=== PATIENT | female | born 1990 | race Caucasian/White ===

== ENCOUNTER 2016-07-16 22:33 | Emergency (ER) | payer OTHER ==
[2016-07-16 22:46] VITALS: BP 139/76
[2016-07-16 22:58] LABS: Urine Bilirubin Negative (NEGATIVE); Urine Blood Negative /ul (NEGATIVE); Urine Ketone Negative (NEGATIVE); Urine Nitrite Negative (NEGATIVE); Urine Protein Negative (NEGATIVE); Urine Specific Gravity 1.025 SP.GR. (1.005-1.010); Urine Urobilinogen Normal (NORMAL); Urine pH 6.5 pH (5.0-7.0)
[2016-07-17 00:11] LABS: Urine Appearance Clear; Urine Bacteria 1+; Urine Color Yellow; Urine RBC None Seen /hpf (0-5); Urine WBC None Seen /hpf (0-5)
[2016-07-17] MEDS ORDERED: HYDROcodone/ACETAMINOPHEN 1 EACH TABLET PO ONE (00:38)
[2016-07-17] MEDS ORDERED: SULFAMETHOXAZOLE/TRIMETHOPRIM 1 TAB TABLET PO ONE (00:38)
--- NOTE | 2016-07-17 00:44 | ERNOTE ---
Back Pain ER HPI Date of Service: 07/16/16 Presenting Symptoms: other Time Seen by Provider: 07/16/16 23:55 Source: patient Exam Limitations: no limitations Immunizations: IMMUNIZATION HX Immunizations Up to Date Yes History of Influenza Vaccine No Hx Pneumococcal Vaccination No Allergies/Adverse Reactions: Allergies adhesive Allergy (Severe, Verified 07/16/16 22:46) ketorolac tromethamine [From Toradol] Allergy (Severe, Verified 07/16/16 22:46) latex Allergy (Severe, Verified 07/16/16 22:46) promethazine HCl [From Phenergan] Allergy (Severe, Verified 07/16/16 22:46) Home Medications: HOME MEDICATIONS Hydrocodone/Acetaminophen [Lortab 5-325 mg Tablet] 1 - 2 each PO QID PRN #16 tablet 07/17/16 [Last Taken Unknown] Sulfamethoxazole/Trimethoprim [Bactrim Ds] 1 tab PO BID #14 tab 07/17/16 [Last Taken Unknown] Narrative: 3 days of right low back pain, flank pain. Hx of kidney stone and is concerned she might have another. No fall or injury. No fever. No distinct dysuria. Has Implanon and periods are irregular. Date (Duration): 07/13/16 Timing: Reports: getting worse Quality/Severity: Reports: moderate Location of pain: Reports: lower back Activities at Onset: Reports: none Recent Injury?: Reports: no Possible Precipitating Factor: Reports: none Modifying Factors - (Worsens): Reports: movement flexion Associated Symptoms: Denies: fever/chills Prior Treament: Denies: recently seen Review of Systems - Review of Systems Constitutional: Present: no symptoms reported ENT: Present: no symptoms reported Respiratory: Present: no symptoms reported Cardiology: Present: no symptoms reported Gastrointestinal/Abdominal: Present: no symptoms reported. Absent: nausea, vomiting Genitourinary: Present: frequency. Absent: decreased urinary output Musculoskeletal: Present: back pain - Patient's Past Medical History Patient History - Medical: Fibromyalgia, GERD, Headache, Kidney stone, Migraines , Obesity, UTI'S Patient History - Cardiac/Respiratory: No pertinent hx Patient History - Cancer: No Hx of Cancer Patient History - Surgical Procedures: Other - Family History Mother Family History - Medical: Diabetes Type 2 Family History - Cardiac/Respiratory: Coronary Heart Disease, Myocardial Infarction Father Family History - Medical: Diabetes Type 2 Family History - Cardiac/Respiratory: Coronary Heart Disease - Social History Living Situations: home Smoking Status: Current every day smoker Have you smoked in the past 12 months: Yes Do you dip or chew tobacco: No Alcohol Use: none Drug Use: none Physical Exam - Physical Exam General Appearance: Present: wd/wn, alert, no apparent distress Neck: Present: normal inspection, nontender Respiratory: Present: no respiratory distress, normal breath sounds, no accessory muscle use, lungs clear Cardiovascular/Chest: Present: regular rate, rhythm Gastrointestinal/Abdominal: Present: normal bowel sounds, nontender, other - obese ++, pannus Back Exam: Present: CVA tenderness (R), decreased range of motion. Absent: CVA tenderness (L) Extremity Exam: Present: normal inspection, no edema Neurological Exam: Present: alert, oriented Skin Exam: Present: warm/dry ED Progress - Results and Orders Patient's Lab Results:: I have reviewed the patient's lab results. - Vital Signs Patient's Vital Signs:: I have reviewed the patient's vital signs. Vital Signs: Vital Signs 07/16/16 22:44 Temperature 35.3 C L Pulse Rate 85 Respiratory 14 Rate Blood Pressure 139/76 O2 Sat by Pulse 97 Oximetry - Progress/Reassessment Chief Complaint: Back Pain Plan - Plan Plan: Minimal evidence for UTI, only bacteruria. Treat with Bactrim. F/U PCP. Departure Clinical Impression: Abdominal pain, UTI (urinary tract infection) - Departure Disposition: Home self-care Condition: Good Instructions: Urinary Tract Infection, Adult, [id number] Additional Instructions: Follow up with your physician in 10 days. Sooner if your symptoms worsen. Prescriptions: Hydrocodone/Acetaminophen [Lortab 5-325 mg Tablet] 1 - 2 each PO QID PRN #16 tablet PRN Reason: Pain Sulfamethoxazole/Trimethoprim [Bactrim Ds] 1 tab PO BID #14 tab
[2016-07-17] MEDS ORDERED: HYDROcodone/ACETAMINOPHEN 1 EACH TABLET ONE (00:46)
[2016-07-17] MEDS ORDERED: SULFAMETHOXAZOLE/TRIMETHOPRIM 1 TAB TABLET ONE (00:46)
== END 2016-07-17 00:49 | disposition home or self-care (01) ==
LOC: ER 22:33
DX: M54.5 Low back pain (principal); N39.0 Urinary tract infection, site not specified; F17.210 Nicotine dependence, cigarettes, uncomplicated

== ENCOUNTER 2016-11-03 11:40 | Emergency (ER) | payer OTHER ==
[2016-11-03 12:12] LABS: Hematocrit 41.6 % (37.0-47.0); Hemoglobin 14.1 gm/dL (12.5-16.0); Mean Cell Volume 85.6 fl (78-100); Mean Corpuscular Hgb Conc 33.9 g/dl (32-36); Neutrophil # 5.8 K/mm3 (1.3-6.0); Neutrophil % 63.6 % (42-75.0); Platelet Count 323 K/mm3 (150-450); Red Blood Count 4.86 M/mm3 (4.2-5.4); Red Cell Distribution Width 12.4 % (11.5-14.0); White Blood Count 9.2 K/mm3 (4.0-10.5)
[2016-11-03 12:22] LABS: Prothrombin Time (Patient) 10.8 Seconds (9.4-11.4)
[2016-11-03 12:23] LABS: INR 1.04 INR (0.90-1.10); Partial Thrombolplastin Time 27.3 Seconds (24-32)
[2016-11-03 12:28] LABS: ALT 27 U/L (19-67); AST 13 U/L (0-48); Albumin * 3.1 gm/dl (3.4-5.0); Alkaline Phosphatase * 75 U/L (50-170); Anion Gap 13.4 mmol/L (6.8-13.8); BUN/Creatinine Ratio 10.5 (9.0-21.6); Bilirubin, Total 0.4 mg/dL (0.0-1.1); Blood Urea Nitrogen 9 mg/dL (3-23); Calcium * 8.6 mg/dL (7.9-10.9); Carbon Dioxide 27.5 mmol/L (24-32.6); Chloride 107 mmol/L (97-106); Glucose * 128 mg/dL (70-110); Potassium 3.9 mmol/L (3.4-4.6); Sodium 144 mmol/L (132-142); Total Protein 6.6 gm/dL (6.2-8.2); Troponin I Less than 0.017 ng/ml (0.00-0.10)
--- OUTSIDE RECORDS SUMMARY | 2016-11-03 12:37 | XMS REPORT | Continuity of Care Document ---
:1990 Author Organization [facility] ([facility]) Address [address] [place] [address] Phone [phone] Care Team Providers Name Role Phone Provider, No-Primary Care Primary Care Provider Unavailable Source Comments This disclosure is being made pursuant to the Care Everywhere program, applicable federal and state laws, and may not contain all informaitonavailable regarding this patient.[facility] ([facility]) Active Allergies and Adverse Reactions Allergen Noted Date Severity Reactions Comments Adhesive 02/12/2014 Urticaria (Hives) Latex 02/12/2014 Urticaria (Hives) Current Medications Prescription Sig. Disp. Refills Start Date End Date Status VITS Take by mouth. Active W-CA,FE,FA,<1MG, ( VITAMIN PO) albuterol 90 Use 2 Puffs by Active mcg/Actuation inhaler inhalation every 6 hours as needed. Active Problems Problem Noted Date Other specified and placental problems affecting management of 2013 mother, antepartum Asthma 04/20/2011 Gallstones 04/20/2011 Dysfunctional uterine bleeding 04/20/2011 Social History Tobacco Use Types Packs/Day Years Used Date Current Every Day Smoker Cigarettes 0.5 6 Alcohol Use Drinks/Week oz/Week Comments No Last Filed Vital Signs Vital Sign Reading Time Taken Blood Pressure 115/55 02/12/2014 2:12 PM CDT Pulse 91 02/12/2014 2:12 PM CDT Temperature 35.7 C (96.3 F) 02/12/2014 2:12 PM CDT Respiratory Rate 16 04/19/2011 10:40 PM CDT Height 1.6 m (5' 3") 02/12/2014 2:12 PM CDT Weight 91.4 kg (201 lb 8 oz) 02/12/2014 2:12 PM CDT Body Mass Index 35.7 02/12/2014 2:12 PM CDT Oxygen Saturation 97% 04/19/2011 10:40 PM CDT Plan of Care Health Maintenance Due Date Last Done Comments Hepatitis B Vaccine (1 of 3 - Primary Series) 1989 Tdap Vaccine 2000 Cervical Cancer Screening 2007 Lipid Disorder Screening 2007 MMR Vaccine 2007 Td Vaccine 2007 Varicella Vaccine (1 of 2 - Adult - No Evidence of 2007 Immunity) Pneumococcal Vaccine (1 of 1 - PPSV23) 2008 Influenza Vaccine: Seasonal (Season Ended) 2017 Results from Last 3 Months Not on file
--- OUTSIDE RECORDS SUMMARY | 2016-11-03 12:37 | XMS REPORT | Continuity of Care Document ---
:1990 Author Organization [facility] [place] [address] Care Team Providers Name Role Phone Provider, None Per Patient Primary Care Provider Unavailable Source Comments This disclosure is being made pursuant to the [employer] program and maynot contain all information available regarding this patient.[facility] Active Allergies and Adverse Reactions No Known Allergies Current Medications Be aware that medications may not be up to date as of this document. Alwaysverify current medications with the patient. No known medications Active Problems Currently Estimated Date of Delivery Comments Yes No additional problems on file Immunizations Name Dates Previously Given Next Due DTaP, 5 pertussis antigens 11/08/1994,11/08/1994,11/06/1991,01/30/1991,12/1989,1989 HPV Quadrivalent 07/29/2007,04/03/2007,01/28/2007 Hepatitis A adult 04/03/2007 Hepatitis B 12/05/1995,12/05/1995,11/08/1994,11/08/1994,,04/12/1994 HiB HbOC 01/30/1991,01/30/1991,05/31/1990,05/31/1990 IPV 02/16/1995,11/06/1991,01/30/1991,05/31/1990,11/1989 Influenza Split 05/09/2005,04/27/2003,04/25/1999 MMR 02/16/1995,02/16/1995,07/24/1991,07/24/1991 Meningococcal Polysaccharide 04/03/2007 OPV 02/16/1995,11/06/1991,01/30/1991,05/31/1990,11/1989 PPD Test 02/16/1995 Tdap 04/03/2007,11/06/1991,01/30/1991,05/31/1990,11/1989 Social History Tobacco Use Types Packs/Day Years Used Date Current Every Day Smoker Cigarettes 0.5 5 Alcohol Use Drinks/Week oz/Week Comments No Last Filed Vital Signs Vital Sign Reading Time Taken Blood Pressure 94/50 11/16/2013 2:45 PM CDT Pulse 67 11/16/2013 2:45 PM CDT Temperature 35.8 C (96.4 F) 11/16/2013 12:17 PM CDT Respiratory Rate 18 11/16/2013 2:45 PM CDT Height 1.6 m (5' 3") 11/16/2013 12:17 PM CDT Weight 83.915 kg (185 lb) 11/16/2013 12:17 PM CDT Body Mass Index 32.78 11/16/2013 12:17 PM CDT Oxygen Saturation 97% 11/16/2013 2:45 PM CDT Plan of Care Health Maintenance Due Date Last Done Comments Pap Smear 2010 Influenza Immunization (#1) 2016 05/09/2005, 04/27/2003, 04/25/1999 Tetanus/Pertussis (5 - Td) 04/03/2017 04/03/2007, Additional history exists 11/08/1994, 11/06/1991 Results from Last 3 Months Not on file
--- NOTE | 2016-11-03 12:38 | ERNOTE ---
Chest Pain/Cardiac HPI Date of Service: 11/03/16 Chief Complaint: Chest Pain Time Seen by Provider: 11/03/16 12:22 Source: patient Exam Limitations: no limitations Immunizations: IMMUNIZATION HX Immunizations Up to Date Yes History of Influenza Vaccine No Hx Pneumococcal Vaccination No Allergies/Adverse Reactions: Allergies adhesive Allergy (Severe, Verified 11/03/16 11:55) Hives ketorolac tromethamine [From Toradol] Allergy (Severe, Verified 11/03/16 11:55) Hives latex Allergy (Severe, Verified 11/03/16 11:55) Hives promethazine HCl [From Phenergan] Allergy (Severe, Verified 11/03/16 11:55) Other Redness at injection site and racing heart. Home Medications: HOME MEDICATIONS Albuterol Sulfate [Albuterol Sulfate 0.63 MG/3ML] 0.63 mg IH PRN 08/03/16 [Last Taken Unknown] Fluticasone Propionate [Flovent Hfa] 10.6 gm IH PRN 08/03/16 [Last Taken Unknown ] Cetirizine HCl/Pseudoephedrine [Zyrtec-D Tablet] 1 each PO 11/03/16 [Last Taken Unknown] Etonogestrel [Nexplanon] 68 mg SQ 11/03/16 [Last Taken Unknown] Ranitidine HCl [Zantac] 150 mg PO BID #60 tab 11/03/16 [Last Taken Unknown] Narrative: Pt. comes in with c/o L sided chest pain for 3 hours. Pt. denies any SOB, NVD, but does state that she has a bad taste in her mouth. Pt. denies any prehospital treatment alleviating factors, or aggravating factors. Pt. does state that pain radiates to her back but not to her jaw. Review of Systems - Review of Systems Constitutional: Present: no symptoms reported. Absent: recent illness, fever, chills, weakness, fatigue, malaise EYE: Present: no symptoms reported ENT: Present: no symptoms reported Respiratory: Present: no symptoms reported. Absent: shortness of breath, cough , wheezing Cardiology: Present: chest pain. Absent: palpitations, edema Gastrointestinal/Abdominal: Present: no symptoms reported. Absent: nausea, vomiting, diarrhea Genitourinary: Present: no symptoms reported Musculoskeletal: Present: no symptoms reported. Absent: back pain, joint pain Skin: Present: no symptoms reported. Absent: rash, change in color Neurological: Present: no symptoms reported. Absent: headache, dizziness/light- headedness, numbness, tingling All Other Systems: All systems neg except as marked - Patient's Past Medical History Patient History - Medical: Arthritis, Chronic Pain, Fibromyalgia, GERD, Headache , Kidney stone, Migraines, Obesity, UTI'S Patient History - Cardiac/Respiratory: Asthma, Sleep Apnea Patient History - Cancer: Cervical Patient History - Surgical Procedures: Other Patient History - Other: None LMP (Calendar): 08/03/15 - Family History Mother Family History - Medical: Diabetes Type 2 Family History - Cardiac/Respiratory: Coronary Heart Disease, Myocardial Infarction Father Family History - Medical: Diabetes Type 2 Family History - Cardiac/Respiratory: Coronary Heart Disease - Social History Living Situations: home Abuse History: No History of abuse Psych History: No pertinent hx Alcohol Use: none Drug Use: none - Immunizations Immunizations Up to Date: Yes Hx Pneumococcal Vaccination: No History of Influenza Vaccine: No Physical Exam - Physical Exam General Appearance: Present: wd/wn, alert, no apparent distress Eye Exam: Normal inspection: bilateral, PERRL: bilateral, EOMI: bilateral Ears, Nose, Throat: Present: normal ENT inspection, normal pharynx Neck: Present: normal inspection, nontender. Absent: lymphadenopathy (R), lymphadenopathy (L) Respiratory: Present: no respiratory distress, normal breath sounds, no accessory muscle use, chest nontender, lungs clear Cardiovascular/Chest: Present: regular rate, rhythm, no murmur, normal peripheral pulses Gastrointestinal/Abdominal: Present: normal bowel sounds, nontender, nondistended, soft, no organomegaly Back Exam: Present: normal inspection, normal range of motion, no CVA tenderness , no vertebral tenderness Extremity Exam: Present: normal inspection, non-tender, normal range of motion, no edema Neurological Exam: Present: alert, oriented, normal mood/affect, no motor/ sensory deficits Skin Exam: Present: normal color, warm/dry. Absent: pallor, skin rash ED Progress - Results and Orders Patient's Lab Results:: I have reviewed the patient's lab results. - Vital Signs Patient's Vital Signs:: I have reviewed the patient's vital signs. Vital Signs: Vital Signs 11/03/16 11:51 Temperature 36.3 C L Pulse Rate 87 Respiratory 16 Rate Blood Pressure 131/49 O2 Sat by Pulse 98 Oximetry - EKG EKG: NSR EKG read: Reviewed by me EKG Comments: Interpreted by Dr Lester no acute - X-Ray X-Ray #1 X-Ray: chest Interpretation: Reviewed by me X-ray Comments: Airway disease no acute - Progress/Reassessment Chief Complaint: Chest Pain Progress:: Pain free at discharge Departure - Departure Clinical Impression: GERD (gastroesophageal reflux disease) Qualifiers: Esophagitis presence: with esophagitis Qualified Code(s): K21.0 - Gastro- esophageal reflux disease with esophagitis Disposition: Home self-care Condition: Good Instructions: Food Choices for Gastroesophageal Reflux Disease, Adult, Easy-to- Read, Gastroesophageal Reflux Disease, Pediatric Additional Instructions: Please follow up with primary provider if you have further problems in 2-3 days. Referrals: Katlin Brooks DO [Primary Care Provider] - Prescriptions: Ranitidine HCl [Zantac] 150 mg PO BID #60 tab
[2016-11-03] MEDS ORDERED: LIDOCAINE HCL 20 ML UDC PO ONE (12:51)
[2016-11-03] MEDS ORDERED: MAG HYDROX/ALUMINUM HYD/SIMETH 30 ML UDC PO ONE (12:51)
[2016-11-03] MEDS ORDERED: SUCRALFATE 1 G/10 ML UDC PO ONE (12:51)
[2016-11-03 14:00] VITALS: BP 130/40
== END 2016-11-03 13:45 | disposition home or self-care (01) ==
LOC: ER 11:40
DX: K21.0 Gastro-esophageal reflux disease with esophagitis (principal); Z85.41 Personal history of malignant neoplasm of cervix uteri

== ENCOUNTER 2016-11-12 21:50 | Emergency (ER) | payer OTHER ==
[2016-11-12 22:57] VITALS: BP 122/64
[2016-11-12 23:27] LABS: Urine Bilirubin Negative (NEGATIVE); Urine Blood Negative /ul (NEGATIVE); Urine Ketone Negative (NEGATIVE); Urine Nitrite Negative (NEGATIVE); Urine Protein Negative (NEGATIVE); Urine Specific Gravity 1.025 SP.GR. (1.005-1.010); Urine Urobilinogen Normal (NORMAL)
[2016-11-12 23:52] LABS: Urine Appearance Clear; Urine Bacteria 2+; Urine Color Yellow; Urine RBC None Seen /hpf (0-5); Urine WBC None Seen /hpf (0-5)
--- OUTSIDE RECORDS SUMMARY | 2016-11-12 23:56 | XMS REPORT | Continuity of Care Document ---
:1990 Author Organization [facility] ([facility]) Address [address] [place] [address] Phone [phone] Care Team Providers Name Role Phone Provider, No-Primary Care Primary Care Provider Unavailable Source Comments This disclosure is being made pursuant to the Care Everywhere program, applicable federal and state laws, and may not contain all informaitonavailable regarding this patient.[facility] ([facility]) Active Allergies and Adverse Reactions Allergen Noted [...]
--- OUTSIDE RECORDS SUMMARY | 2016-11-12 23:56 | XMS REPORT | Continuity of Care Document ---
:1990 Author Organization [facility] [place] [address] Care Team Providers Name Role Phone Provider, None Per Patient Primary Care Provider Unavailable Source Comments This disclosure is being made pursuant to the [employer] program and maynot contain all information available regarding this patient.[facility] Active Allergies and Adverse Reactions No Known [...]
[2016-11-13 00:16] LABS: Hematocrit 40.7 % (37.0-47.0); Hemoglobin 13.7 gm/dL (12.5-16.0); Mean Cell Volume 87.7 fl (78-100); Mean Corpuscular Hemoglobin 29.5 pg (27-31); Mean Corpuscular Hgb Conc 33.7 g/dl (32-36); Platelet Count 315 K/mm3 (150-450); Red Blood Count 4.64 M/mm3 (4.2-5.4); Red Cell Distribution Width 11.6 % (11.5-14.0); White Blood Count 10.2 K/mm3 (4.0-10.5)
--- NOTE | 2016-11-13 00:21 | ERNOTE ---
Medical Problem HPI - Narrative Date of Service: 11/13/16 - General Chief Complaint: General Assessment Time Seen by Provider: 11/12/16 23:46 Source: patient Exam Limitations: no limitations - Immun/Allergies/Home Medications Immunizations: IMMUNIZATION HX Immunizations Up to Date Yes History of Influenza Vaccine No Hx Pneumococcal Vaccination No Allergies/Adverse Reactions: Allergies adhesive Allergy (Severe, Verified 11/03/16 11:55) Hives ketorolac tromethamine [From Toradol] Allergy (Severe, Verified 11/03/16 11:55) Hives latex Allergy (Severe, Verified 11/03/16 11:55) Hives promethazine HCl [From Phenergan] Allergy (Severe, Verified 11/03/16 11:55) Other Redness at injection site and racing heart. Home Medications: HOME MEDICATIONS Albuterol Sulfate [Albuterol Sulfate 0.63 MG/3ML] 0.63 mg IH PRN 08/03/16 [Last Taken Unknown] Fluticasone Propionate [Flovent Hfa] 10.6 gm IH PRN 08/03/16 [Last Taken Unknown ] Cetirizine HCl/Pseudoephedrine [Zyrtec-D Tablet] 1 each PO 11/03/16 [Last Taken Unknown] Etonogestrel [Nexplanon] 68 mg SQ 11/03/16 [Last Taken Unknown] - History of Present History Narrative: PT STATES SHE HAS BEEN TAKING HER BGM AT HOME AND THE VALUES JUMP FROM 79 AT NOON TO 300'S TONIGHT. SHE HAS HX OF GESTATIONAL DIABETES AND WAS NO MEDS DURING BUT DELIVERED IN MAR 2016 AND NOT BEEN ON ANYTHING FOR GLUCOSE SINCE. SHE HAS NOT SEEN HER PCP FOR THI. SHE ALSO SAYS SHE HAS HAD DECREASED URINATION AND WHEN SHE DOES URINATE SAYS SHE HAS PAIN IN BOTH FLANK. SHE DENIES ANY DYSURIA OR FREQUENCY OR URGENCY. SHE ALSO HAS C/O SOME MILD RUQ ABDOMINAL PAIN SINCE THIS AFFTERNOON AND WONDERS IF SHE COULD BE HAVING GALL BLADDER PROBLEMS. SHE IS ON BCP NOW AND HAS IS NOT HAVING PERIODS AND DOES NOT THINK SHE IS . SHE IS A3. SHE DENIES N OR V OR D. SHE DENIES CONSTIPATION. NO HX OF ANY FEVERS. SHE WAS HERE RECENTLY 03 NOVEMBER FOR C/O CYNTHIA PAIN WITH NEGATIVE W/U AND DC'D WITH DX OF GERD AND TRIAL OF ZANTAC. Review of Systems - Review of Systems Constitutional: Present: See HPI EYE: Present: no symptoms reported ENT: Present: no symptoms reported Respiratory: Present: no symptoms reported Cardiology: Present: no symptoms reported Gastrointestinal/Abdominal: Present: See HPI, abdominal pain Genitourinary: Present: See HPI, other - FLANK PAIN AND DECREASED URINE OUT PUT Musculoskeletal: Present: no symptoms reported Skin: Present: no symptoms reported Neurological: Present: no symptoms reported Endocrine: Present: See HPI, other - FLUCTUATING BGM AT HOME Hematologic/Lymphatic: Present: no symptoms reported Psych: Present: no symptoms reported All Other Systems: All systems neg except as marked - Patient's Past Medical History Patient History - Medical: Arthritis, Chronic Pain, Fibromyalgia, GERD, Headache , Kidney stone, Migraines, Obesity, UTI'S Patient History - Cardiac/Respiratory: Asthma, Sleep Apnea Patient History - Cancer: Cervical Patient History - Surgical Procedures: Other Patient History - Other: None LMP (Calendar): 08/03/15 - Family History Mother Family History - Medical: Diabetes Type 2 Family History - Cardiac/Respiratory: Coronary Heart Disease, Myocardial Infarction Father Family History - Medical: Diabetes Type 2 Family History - Cardiac/Respiratory: Coronary Heart Disease - Social History Living Situations: home Abuse History: No History of abuse Psych History: No pertinent hx Smoking Status: Current every day smoker Patient requests Smoking Cessation Consult: No Initiate information on Smoking Cessation: No Alcohol Use: none Drug Use: none - Immunizations Immunizations Up to Date: Yes Hx Pneumococcal Vaccination: No History of Influenza Vaccine: No Physical Exam - Physical Exam General Appearance: Present: wd/wn, alert, no apparent distress - YOUNG LADY , OBESE , WITH FLAT AFFECT BUT NO OTHER APPARENT DISTRES. VSS Eye Exam: Normal inspection: bilateral, PERRL: bilateral, EOMI: bilateral Ears, Nose, Throat: Present: normal ENT inspection Neck: Present: normal inspection, nontender Respiratory: Present: no respiratory distress, normal breath sounds, no accessory muscle use, chest nontender, lungs clear Cardiovascular/Chest: Present: regular rate, rhythm, no murmur Gastrointestinal/Abdominal: Present: normal bowel sounds, nondistended, soft, no organomegaly, tenderness - MILD RUQ TENDERNESS .NO REBUND OR SIG. GUARDING. Back Exam: Present: normal inspection, normal range of motion, no vertebral tenderness, CVA tenderness (R), CVA tenderness (L) Extremity Exam: Present: normal inspection Neurological Exam: Present: alert, oriented Skin Exam: Present: normal color, warm/dry ED Progress - Results and Orders Patient's Lab Results:: I have reviewed the patient's lab results. Results and Orders: UA WITH SG = 1.025 AND EPIS WITH 2 + BACTERIA. NO RBC OR WBC. CULTURE PENDING. CBC NL AND CMP NORMAL. - Vital Signs Patient's Vital Signs:: I have reviewed the patient's vital signs. Vital Signs: Vital Signs 11/12/16 11/12/16 22:00 22:56 Temperature 36.9 C 36.8 C Pulse Rate 86 84 Respiratory 16 14 Rate Blood Pressure 126/59 122/64 O2 Sat by Pulse 98 99 Oximetry - Progress/Reassessment Chief Complaint: General Assessment Departure - Departure Clinical Impression: Abdominal pain Qualifiers: Abdominal location: right upper quadrant Qualified Code(s): R10.11 - Right upper quadrant pain Disposition: Home Follow Up Needed Condition: Good Instructions: Abdominal Pain, Adult, [id number] Additional Instructions: YOUR LABS ARE NORMAL , EVEN THE GLUCOSE. THE URINE HAD A LITTLE BACTERIA IN IT AND I ORDERED A URINE CULTURE TO BE SURE BUT I THINK IT IS JUST GOING TO BE SKIN CONTAMINATION. CALL YOUR DR FOR AN APPOINTMENT TO EVALUATE IF THERE IS A POSSIBLE DIABETES PROBLEM AND HE MAY ALSO DO FURTHER EVALUATION FOR OTHER CAUSES OF ABDOMINAL PAINS LIKE OUTPATIENT ULTRASOUNDS. IF THE URINE SSHOWSS A TRUE INFECTION WE WILL CALL YOU. TRY A DIET OF CLEAR LIQUIDS AND LOW FATS FOR 2- 3 DAYS TO SEE IF THAT HELPS.
[2016-11-13 00:25] LABS: Albumin * 3.4 gm/dl (3.4-5.0); Anion Gap 11.2 mmol/L (6.8-13.8); BUN/Creatinine Ratio 18.5 (9.0-21.6); Bilirubin, Total 0.3 mg/dL (0.0-1.1); Ca. Corrected For Albumin 8.9 mg/dL (8.4-10.2); Calcium * 8.7 mg/dL (7.9-10.9); Potassium 4.2 mmol/L (3.4-4.6); Total Protein 7.3 gm/dL (6.2-8.2)
[2016-11-13 00:26] LABS: Total Cells Counted 100
[2016-11-13 00:35] LABS: Band 1 % (0-2.0); Eosinophil 3 % (0-3); Lymphocyte 31 % (20-51); Monocyte 10 % (0-9); Neutrophil 55 % (42-75); Neutrophil # 5.6 K/mm3 (1.3-6.0); Platelet Estimate Normal (NORMAL); RBC Morphology Normal (NORMAL)
== END 2016-11-13 02:05 | disposition home or self-care (01) ==
LOC: ER 21:50
DX: R10.11 Right upper quadrant pain (principal); Z72.0 Tobacco use

== ENCOUNTER 2016-12-03 16:57 | Emergency (ER) | payer OTHER ==
--- OUTSIDE RECORDS SUMMARY | 2016-12-03 17:16 | XMS REPORT | Continuity of Care Document ---
:1990 Author Organization [facility] ([facility]) Address [address] [place] [address] Phone [phone] Care Team Providers Name Role Phone Provider, No-Primary Care Primary Care Provider Unavailable Source Comments This disclosure is being made pursuant to the Care Everywhere program, applicable federal and state laws, and may not contain all informaitonavailable regarding this patient.[facility] ([facility]) Active Allergies and Adverse Reactions Allergen Noted [...]
--- OUTSIDE RECORDS SUMMARY | 2016-12-03 17:16 | XMS REPORT | Continuity of Care Document ---
:1990 Author Organization [facility] [place] [address] Care Team Providers Name Role Phone Provider, None Per Patient Primary Care Provider Unavailable Source Comments This disclosure is being made pursuant to the [employer] program and maynot contain all information available regarding this patient.[facility] Active Allergies and Adverse Reactions No Known [...]
--- NOTE | 2016-12-03 17:29 | ERNOTE ---
Lower Extremity HPI - Narrative Date of Service: 12/03/16 - General Lower Extremities Pain: foot: right Time Seen by Provider: 12/03/16 17:08 Source: patient Exam Limitations: no limitations - Immun/Allergies/Home Medications Immunizations: IMMUNIZATION HX Immunizations Up to Date Yes History of Influenza Vaccine No Hx Pneumococcal Vaccination No Allergies/Adverse Reactions: Allergies Allergy/AdvReac Type Severity Reaction Status Date / Time adhesive Allergy Severe Hives Verified 12/03/16 17:04 ketorolac tromethamine Allergy Severe Hives Verified 12/03/16 17:04 [From Toradol] latex Allergy Severe Hives Verified 12/03/16 17:04 promethazine HCl Allergy Severe Other Verified 12/03/16 17:04 [From Phenergan] Home Medications: HOME MEDICATIONS Albuterol Sulfate [Albuterol Sulfate 0.63 MG/3ML] 0.63 mg IH PRN 08/03/16 [Last Taken Unknown] Fluticasone Propionate [Flovent Hfa] 10.6 gm IH PRN 08/03/16 [Last Taken Unknown ] Etonogestrel [Nexplanon] 68 mg SQ 11/03/16 [Last Taken Unknown] - History of Present Illness Narrative: 26-year-old female presents to the emergency room for right foot pain. Patient currently has a broken foot and is in a walking boot but states her daughter jumped on her right foot and now it hurts. Date (Duration): 12/03/16 Occurred: yesterday Method of Injury: Reports: direct blow Reason for Fall: Reports: unknown Loss of Consciousness: Reports: no loss of consciousness Modifying Factors - (Improves): Reports: cold therapy Modifying Factors - (Worsens): Reports: movement Associated Symptoms: Denies: unable to bear weight, dizzy/light headedness, headache, weakness, sensory loss, vomiting/diarrhea Other Injuries: Reports: none Subsequent Symptoms: Denies: sensory loss, numbness, motor loss Review of Systems - Review of Systems Constitutional: Present: no symptoms reported EYE: Present: no symptoms reported ENT: Present: no symptoms reported Respiratory: Present: no symptoms reported Cardiology: Present: no symptoms reported Gastrointestinal/Abdominal: Present: no symptoms reported Genitourinary: Present: no symptoms reported Musculoskeletal: Present: See HPI, joint pain. Absent: joint swelling Skin: Present: no symptoms reported Neurological: Present: no symptoms reported Endocrine: Present: no symptoms reported Hematologic/Lymphatic: Present: no symptoms reported Psych: Present: no symptoms reported All Other Systems: All systems neg except as marked - Patient's Past Medical History Patient History - Medical: Arthritis, Chronic Pain, Fibromyalgia, GERD, Headache , Kidney stone, Migraines, Obesity, UTI'S Patient History - Cardiac/Respiratory: Asthma, Sleep Apnea Patient History - Cancer: Cervical Patient History - Surgical Procedures: Other Patient History - Other: None LMP (females 10-50): now LMP (Calendar): 08/03/15 - Family History Mother Family History - Medical: Diabetes Type 2 Family History - Cardiac/Respiratory: Coronary Heart Disease, Myocardial Infarction Father Family History - Medical: Diabetes Type 2 Family History - Cardiac/Respiratory: Coronary Heart Disease - Social History Living Situations: home Abuse History: No History of abuse Psych History: No pertinent hx Smoking Status: Current every day smoker Alcohol Use: none Drug Use: none - Immunizations Immunizations Up to Date: Yes Hx Pneumococcal Vaccination: No History of Influenza Vaccine: No Physical Exam - Physical Exam Narrative: No swelling observed. Good pedal pulses bilaterally. Good CSM to right foot General Appearance: Present: wd/wn, alert, no apparent distress Eye Exam: Normal inspection: bilateral Ears, Nose, Throat: Present: normal ENT inspection, normal pharynx Neck: Present: normal inspection, nontender Respiratory: Present: no respiratory distress, normal breath sounds, no accessory muscle use, chest nontender, lungs clear Cardiovascular/Chest: Present: regular rate, rhythm, no murmur, normal peripheral pulses Peripheral Pulses: N=norm/S=strong/W=weak/B=bound/A=absent: Dorsalis-pedis (R): Normal, Dorsalis-pedis (L): Normal Gastrointestinal/Abdominal: Present: normal bowel sounds, nontender, soft Back Exam: Present: normal inspection, normal range of motion, no vertebral tenderness Extremity Exam: Present: normal inspection, normal except -, decreased range of motion - r/t pain Neurological Exam: Present: alert, oriented, normal mood/affect, no motor/ sensory deficits Skin Exam: Present: normal color, warm/dry, cool/dry Lymphatic Exam: Present: no adenopathy ED Progress - Vital Signs Patient's Vital Signs:: I have reviewed the patient's vital signs. Vital Signs: Vital Signs 12/03/16 16:59 Temperature 36.7 C Pulse Rate 85 Respiratory 16 Rate Blood Pressure 137/69 O2 Sat by Pulse 98 Oximetry - X-Ray X-Ray #1 X-Ray: ankle Interpretation: Reviewed by me X-ray Comments: IMPRESSION: 1. No new acute osseous finding. 2. Stable appearance of possible avulsion fracture of the lateral process of talus as discussed previously, of indeterminate age. Correlate clinically. Electronically signed by Audi Nugent M.D.. X-Ray #2 X-Ray: foot Interpretation: Reviewed by me X-ray Comments: Foot 3 Views RT * No definable fracture lucency or cortical discontinuity. Well-corticated ossific fragment seen medial to the navicular bone most likely an accessory navicular bone, grossly stable. Soft tissue swelling still seen adjacent to the accessory navicular bone. Joint spaces are in gross normal alignment without subluxation or dislocation. Lisfranc joint grossly intact. Soft tissues are otherwise normal. IMPRESSION: 1. No definable acute fracture. 2. Persistent soft tissue swelling adjacent to the accessory navicular bone as discussed previously. Correlate clinically for soft tissue/ tendon injury or injury through the synchondrosis. Consider follow-up by routine MRI of the foot/ankle. Electronically signed by Audi Nugent M.D.. - Progress/Reassessment Chief Complaint: Lower Extremity Pain/ Injury Plan - Plan Plan: Patient can continue to a walking boot. She should follow up with orthopedic on Sunday. Patient may take wnwy-[id number]-[id number] pain medications as needed. Departure Clinical Impression: Foot pain, right - Departure Disposition: Home self-care Condition: Stable Instructions: [facility] for Routine Care of Injuries, [id number], Ankle Pain, Joint Pain, [id number] Additional Instructions: Patient can continue to use a walking boot. She should follow up with orthopedic on Sunday. Patient may take teld-ypt-zinymkd pain medications as needed. Return to the emergency room if Swelling numbness or tingling occurs in her affected foot. Referrals: Katlin Brooks DO [Primary Care Provider] -
[2016-12-03 18:16] VITALS: BP 139/72
== END 2016-12-03 18:15 | disposition home or self-care (01) ==
LOC: ER 16:57
DX: M79.671 Pain in right foot (principal); Z87.440 Personal history of urinary (tract) infections; Z87.442 Personal history of urinary calculi; Z85.41 Personal history of malignant neoplasm of cervix uteri; F17.200 Nicotine dependence, unspecified, uncomplicated

== ENCOUNTER 2017-01-04 19:58 | Emergency (ER) | payer OTHER ==
[2017-01-04] MEDS ORDERED: NORMAL SALINE 1,000 ML IV ONE (20:16)
--- NOTE | 2017-01-04 20:17 | ERNOTE ---
Medical Problem HPI - General Chief Complaint: General Assessment Time Seen by Provider: 01/04/17 20:03 Source: patient Exam Limitations: no limitations - Immun/Allergies/Home Medications Immunizations: IMMUNIZATION HX Immunizations Up to Date Yes History of Influenza Vaccine No Hx Pneumococcal Vaccination No Allergies/Adverse Reactions: Allergies adhesive Allergy (Severe, Verified 12/03/16 17:04) Hives ketorolac tromethamine [From Toradol] Allergy (Severe, Verified 12/03/16 17:04) Hives latex Allergy (Severe, Verified 12/03/16 17:04) Hives promethazine HCl [From Phenergan] Allergy (Severe, Verified 12/03/16 17:04) Other Redness at injection site and racing heart. Home Medications: HOME MEDICATIONS Albuterol Sulfate [Albuterol Sulfate 0.63 MG/3ML] 0.63 mg IH PRN 08/03/16 [Last Taken Unknown] Fluticasone Propionate [Flovent Hfa] 10.6 gm IH PRN 08/03/16 [Last Taken Unknown ] Etonogestrel [Nexplanon] 68 mg SQ 11/03/16 [Last Taken Unknown] - History of Present History Narrative: Pt was out in the heat today and did not drink much fluids. After arriving home her mother reports that she "passed out" a number of times. Pt brought in by EMS with IV fluids running Timing: constant Severity: moderate Review of Systems - Review of Systems Constitutional: Present: weakness. Absent: recent illness EYE: Present: no symptoms reported ENT: Present: other - dry mouth Respiratory: Present: no symptoms reported Cardiology: Absent: chest pain Gastrointestinal/Abdominal: Present: nausea. Absent: vomiting Genitourinary: Present: decreased urinary output Musculoskeletal: Present: no symptoms reported Skin: Present: no symptoms reported Neurological: Present: headache, dizziness/light-headedness Endocrine: Present: no symptoms reported Hematologic/Lymphatic: Present: no symptoms reported Psych: Present: no symptoms reported - Patient's Past Medical History Patient History - Medical: Arthritis, Chronic Pain, Fibromyalgia, GERD, Headache , Kidney stone, Migraines, Obesity, UTI'S Patient History - Cardiac/Respiratory: Asthma, Sleep Apnea Patient History - Cancer: Cervical Patient History - Surgical Procedures: Other Patient History - Other: None LMP (Calendar): 08/03/15 - Family History Mother Family History - Medical: Diabetes Type 2 Family History - Cardiac/Respiratory: Coronary Heart Disease, Myocardial Infarction Father Family History - Medical: Diabetes Type 2 Family History - Cardiac/Respiratory: Coronary Heart Disease - Social History Living Situations: home Abuse History: No History of abuse Psych History: No pertinent hx Alcohol Use: none Drug Use: none - Immunizations Immunizations Up to Date: Yes Hx Pneumococcal Vaccination: No History of Influenza Vaccine: No Physical Exam - Physical Exam General Appearance: Present: wd/wn, alert, no apparent distress Eye Exam: Normal inspection: bilateral, PERRL: bilateral, EOMI: bilateral Ears, Nose, Throat: Present: normal pharynx, dry mucous membranes Neck: Present: normal inspection, nontender Respiratory: Present: no respiratory distress, normal breath sounds, lungs clear Cardiovascular/Chest: Present: regular rate, rhythm, no murmur, normal peripheral pulses Gastrointestinal/Abdominal: Present: nontender, nondistended, soft Extremity Exam: Present: normal inspection, normal range of motion Neurological Exam: Present: alert, oriented, no motor/sensory deficits Skin Exam: Present: normal color, warm/dry. Absent: skin rash Lymphatic Exam: Present: no adenopathy ED Progress - Results and Orders Patient's Lab Results:: I have reviewed the patient's lab results. Results and Orders: Laboratory Tests 01/04/17 01/04/17 01/04/17 20:34 20:34 21:01 WBC 12.3 H Hgb 13.5 Hct 39.9 Plt Count 296 Sodium 142 Potassium 3.7 Chloride 109 H Carbon Dioxide 24.3 Anion Gap 12.4 BUN 11 Creatinine 0.79 BUN/Creatinine Ratio 13.9 Random Glucose 82 Calcium 8.2 Total Bilirubin 0.3 AST 13 ALT 26 Alkaline Phosphatase 76 Total Protein 6.9 Albumin 3.2 L Urine Color Yellow Urine Appearance Clear Urine pH 6.0 Ur Specific [place] >=1.030 Urine Protein Negative Urine Glucose (UA) Negative Urine Ketones Negative Urine Blood Negative Urine Nitrate Negative Urine Bilirubin Negative Urine Urobilinogen Normal Ur Leukocyte Esterase Negative Urine RBC None seen Urine WBC None seen Ur Epithelial Cells None seen Urine Bacteria None seen Urine Culture Comments No culture indicated - Vital Signs Patient's Vital Signs:: I have reviewed the patient's vital signs. Vital Signs: Vital Signs 01/04/17 20:00 Temperature 37.0 C Pulse Rate 93 Respiratory 18 Rate Blood Pressure 121/55 O2 Sat by Pulse 98 Oximetry - Progress/Reassessment Chief Complaint: General Assessment Progress Note-Subjective: 01/04/17 22:07 Pt appears better, sitting up in bed, reports that her head is throbbing. Acetaminophen ordered Departure - Departure Clinical Impression: Dehydration Heat collapse Qualifiers: Encounter type: initial encounter Qualified Code(s): T67.1XXA - Heat syncope, initial encounter Disposition: Home self-care Condition: Good Instructions: Rehydration, Adult, Heat Illness-SportsMed
[2017-01-04 20:35] LABS: Hematocrit 39.9 % (37.0-47.0); Hemoglobin 13.5 gm/dL (12.5-16.0); Mean Cell Volume 86.4 fl (78-100); Mean Corpuscular Hemoglobin 29.2 pg (27-31); Mean Corpuscular Hgb Conc 33.8 g/dl (32-36); Neutrophil # 8.2 K/mm3 (1.3-6.0); Neutrophil % 66.5 % (42-75.0); Platelet Count 296 K/mm3 (150-450); Red Blood Count 4.62 M/mm3 (4.2-5.4); White Blood Count 12.3 K/mm3 (4.0-10.5)
--- OUTSIDE RECORDS SUMMARY | 2017-01-04 20:36 | XMS REPORT | Continuity of Care Document ---
:1990 Author Organization [facility] [place] [address] Care Team Providers Name Role Phone Provider, None Per Patient Primary Care Provider Unavailable Source Comments This disclosure is being made pursuant to the [employer] program and maynot contain all information available regarding this patient.[facility] Active Allergies and Adverse Reactions No Known [...]
[2017-01-04 20:48] LABS: Albumin * 3.2 gm/dl (3.4-5.0); Anion Gap 12.4 mmol/L (6.8-13.8); BUN/Creatinine Ratio 13.9 (9.0-21.6); Bilirubin, Total 0.3 mg/dL (0.0-1.1); Ca. Corrected For Albumin 8.5 mg/dL (8.4-10.2); Calcium * 8.2 mg/dL (7.9-10.9); Carbon Dioxide 24.3 mmol/L (24-32.6); Potassium 3.7 mmol/L (3.4-4.6); Total Protein 6.9 gm/dL (6.2-8.2)
[2017-01-04 21:27] LABS: Urine Appearance Clear; Urine Bacteria None Seen; Urine Bilirubin Negative (NEGATIVE); Urine Blood Negative /ul (NEGATIVE); Urine Color Yellow; Urine Ketone Negative (NEGATIVE); Urine Nitrite Negative (NEGATIVE); Urine Protein Negative (NEGATIVE); Urine RBC None Seen /hpf (0-5); Urine Specific Gravity >=1.030 SP.GR. (1.005-1.010); Urine Urobilinogen Normal (NORMAL); Urine WBC None Seen /hpf (0-5)
[2017-01-04] MEDS ORDERED: ACETAMINOPHEN 500 MG TABLET PO ONE (22:07)
[2017-01-05 04:14] VITALS: BP 112/68
== END 2017-01-04 22:23 | disposition home or self-care (01) ==
LOC: ER 19:58
DX: E86.0 Dehydration (principal); T67.1XXA Heat syncope, initial encounter; Z85.41 Personal history of malignant neoplasm of cervix uteri

== ENCOUNTER 2017-01-20 11:51 | Emergency (ER) | payer OTHER ==
--- OUTSIDE RECORDS SUMMARY | 2017-01-20 12:13 | XMS REPORT | Clinical Summary ---
:1990 Author Organization [facility] [place] [address] Care Team Providers Name Role Phone Unavailable Primary Care Provider Unavailable Source Comments This disclosure is being made pursuant to the [employer] program and maynot contain all information available regarding this patient.[facility] Allergies No Known Allergies Current Medications Be aware that medications may not be up to date as of this document. Alwaysverify current medications with the patient. No known medications Active Problems Not on file Immunizations Name Dates Previously Given [...] 5 Alcohol Use Drinks/Week oz/Week Comments No Currently Estimated Date of Delivery Comments Yes Sex Assigned at Date Recorded Not on file Last Filed Vital Signs Vital Sign Reading Time Taken Blood Pressure 94/50 11/16/2013 2:45 PM CDT Pulse 67 11/16/2013 2:45 PM CDT Temperature 35.8 C (96.4 F) 11/16/2013 12:17 PM CDT Respiratory Rate 18 11/16/2013 2:45 PM CDT Oxygen Saturation 97% 11/16/2013 2:45 PM CDT Inhaled Oxygen Concentration - - Weight 83.9 kg (185 lb) 11/16/2013 12:17 PM CDT Height 160 cm (5' 3") 11/16/2013 12:17 PM CDT Body Mass Index 32.77 11/16/2013 12:17 PM CDT Plan of Treatment Health Maintenance Due Date Last Done Comments Pap Smear 2010 INFLUENZA IMMUNIZATION (#1) 2016 05/09/2005, 04/27/2003, 04/25/1999 Tetanus/Pertussis (5 - Td) 04/03/2017 04/03/2007, 11/08/1994, 11/06/1991, Additional history exists Results Not on filefrom Last 3 Months
--- NOTE | 2017-01-20 12:19 | ERNOTE ---
Abdominal HPI - General Chief Complaint: Abdominal Pain Time Seen by Provider: 01/20/17 12:07 Source: patient Exam Limitations: no limitations - Immun/Allergies/Home Medications Immunizatons: IMMUNIZATION HX Immunizations Up to Date Yes History of Influenza Vaccine No Hx Pneumococcal Vaccination No Allergies/Adverse Reactions: Allergies adhesive Allergy (Severe, Verified 01/20/17 12:03) Hives ketorolac tromethamine [From Toradol] Allergy (Severe, Verified 01/20/17 12:03) Hives latex Allergy (Severe, Verified 01/20/17 12:03) Hives promethazine HCl [From Phenergan] Allergy (Severe, Verified 01/20/17 12:03) Other Redness at injection site and racing heart. Home Medications: HOME MEDICATIONS Albuterol Sulfate [Albuterol Sulfate 0.63 MG/3ML] 0.63 mg IH PRN 08/03/16 [Last Taken Unknown] Fluticasone Propionate [Flovent Hfa] 10.6 gm IH PRN 08/03/16 [Last Taken Unknown ] Etonogestrel [Nexplanon] 68 mg SQ 11/03/16 [Last Taken Unknown] - History of Present Illness Narrative: Patient has had intermittent right upper quadrant pain for about a week. Pain usually starts about 30 minutes after she eats and last up to two hours. She did not have anything to eat or drink today but started with pain at 09:00 when she woke up, nausea, no vomiting. She was diagnosed with gallstones in the past but never had surgery. She had testing done at multiple different facilities and is currently switching her PCP form Dr Brooks to Dr Dillard, won't have an appointment till March Review of Systems - Review of Systems Constitutional: Absent: recent illness, fever, chills ENT: Absent: nose congestion, sore throat Respiratory: Absent: shortness of breath Cardiology: Absent: chest pain Gastrointestinal/Abdominal: Present: See HPI Genitourinary: Present: no symptoms reported Musculoskeletal: Absent: back pain Neurological: Absent: headache - Patient's Past Medical History Patient History - Medical: Arthritis, Chronic Pain, Fibromyalgia, GERD, Headache , Kidney stone, Migraines, Obesity, UTI'S Patient History - Cardiac/Respiratory: Asthma, Sleep Apnea Patient History - Cancer: Cervical Patient History - Surgical Procedures: Other Patient History - Other: None LMP (Calendar): 08/03/15 - Family History Mother Family History - Medical: Diabetes Type 2 Family History - Cardiac/Respiratory: Coronary Heart Disease, Myocardial Infarction Father Family History - Medical: Diabetes Type 2 Family History - Cardiac/Respiratory: Coronary Heart Disease - Social History Living Situations: home Abuse History: No History of abuse Psych History: No pertinent hx Alcohol Use: none Drug Use: none - Immunizations Immunizations Up to Date: Yes Hx Pneumococcal Vaccination: No History of Influenza Vaccine: No Physical Exam - Physical Exam General Appearance: Present: wd/wn, alert, no apparent distress, obese Ears, Nose, Throat: Present: normal pharynx Respiratory: Present: no respiratory distress, normal breath sounds, no accessory muscle use, lungs clear Cardiovascular/Chest: Present: regular rate, rhythm, no murmur Gastrointestinal/Abdominal: Present: normal bowel sounds, nondistended, soft, tenderness - RUQ, other - obese. Absent: guarding, rebound Extremity Exam: Present: no edema Neurological Exam: Present: alert, oriented, normal mood/affect Skin Exam: Present: normal color, warm/dry ED Progress - Results and Orders Patient's Lab Results:: I have reviewed the patient's lab results. - Vital Signs Patient's Vital Signs:: I have reviewed the patient's vital signs. Vital Signs: Vital Signs 01/20/17 11:58 Temperature 36.0 C L Pulse Rate 74 Respiratory 14 Rate Blood Pressure 112/68 O2 Sat by Pulse 97 Oximetry - CT/Ultrasound CT/Ultrasound Narrative: Gallbladder: no stones - Progress/Reassessment Chief Complaint: Abdominal Pain Progress Note-Subjective: 01/20/17 13:44 discussed test results and need to follow up, patient states that she has had a HIDA scan in the past and that is was abnormal does not want to try GI cocktail Departure - Departure Clinical Impression: Right upper quadrant abdominal pain Disposition: Home self-care Condition: Good Instructions: Abdominal Pain, Adult, [id number] Additional Instructions: since you had an abnormal HIDA scan in the past you might need to have your gallbladder removed call your family doctor for a referral to a surgeon
[2017-01-20 12:27] LABS: Hemoglobin 14.5 gm/dL (12.5-16.0); Mean Cell Volume 86.3 fl (78-100); Mean Corpuscular Hemoglobin 29.1 pg (27-31); Mean Corpuscular Hgb Conc 33.7 g/dl (32-36); Mean Platelet Volume 10.1 fl (6.0-9.5); Neutrophil # 4.8 K/mm3 (1.3-6.0); Neutrophil % 64.4 % (42-75.0); Platelet Count 291 K/mm3 (150-450); Red Blood Count 4.98 M/mm3 (4.2-5.4); Red Cell Distribution Width 12.8 % (11.5-14.0); White Blood Count 7.4 K/mm3 (4.0-10.5)
[2017-01-20 12:41] LABS: Albumin * 3.6 gm/dl (3.4-5.0); Anion Gap 11.9 mmol/L (6.8-13.8); Bilirubin, Total 0.5 mg/dL (0.0-1.1); Ca. Corrected For Albumin 8.7 mg/dL (8.4-10.2); Calcium * 8.7 mg/dL (7.9-10.9); Carbon Dioxide 26.2 mmol/L (24-32.6); Potassium 4.1 mmol/L (3.4-4.6); Total Protein 7.7 gm/dL (6.2-8.2)
[2017-01-20 12:55] VITALS: BP 116/72
[2017-01-20] MEDS ORDERED: IBUPROFEN 600 MG TABLET PO ONE (13:41)
[2017-01-20] MEDS ORDERED: IBUPROFEN 600 MG TABLET ONE (13:44)
== END 2017-01-20 13:49 | disposition home or self-care (01) ==
LOC: ER 11:51
DX: R10.11 Right upper quadrant pain (principal); Z85.41 Personal history of malignant neoplasm of cervix uteri

== ENCOUNTER 2017-02-04 15:29 | Emergency (ER) | payer OTHER ==
[2017-02-04 15:35] VITALS: BP 133/60
[2017-02-04] MEDS ORDERED: diphenhydrAMINE HCL 50 MG/ML VIAL ONE (15:43)
[2017-02-04] MEDS ORDERED: diphenhydrAMINE HCL 50 MG/ML VIAL IM ONE (15:43)
[2017-02-04] MEDS ORDERED: ONDANSETRON 4 MG TAB.RAPDIS PO ONE (15:44)
[2017-02-04] MEDS ORDERED: DEXAMETHASONE SOD PHOSPHATE 10 MG/ML VIAL IM ONE (15:46)
[2017-02-04] MEDS ORDERED: DEXAMETHASONE SOD PHOSPHATE 10 MG/ML VIAL ONE (15:48)
[2017-02-04] MEDS ORDERED: ONDANSETRON 4 MG TAB.RAPDIS ONE (15:48)
--- OUTSIDE RECORDS SUMMARY | 2017-02-04 15:48 | XMS REPORT | Clinical Summary ---
:1990 Author Organization [facility] [place] [address] Care Team Providers Name Role Phone Unavailable Primary Care Provider Unavailable Source Comments This disclosure is being made pursuant to the [employer] program and maynot contain all information available regarding this patient.[facility] Allergies No Known Allergies Current Medications Be [...]
--- NOTE | 2017-02-04 15:53 | ERNOTE ---
Headache ER HPI - Narrative Date of Service: 02/04/17 - General Presenting Symptoms: headache, "migraine" Time Seen by Provider: 02/04/17 15:38 Source: patient - Immun/Allergies/Home Medications Immunizations: IMMUNIZATION HX Immunizations Up to Date Yes History of Influenza Vaccine No Hx Pneumococcal Vaccination No Allergies/Adverse Reactions: Allergies adhesive Allergy (Severe, Verified 02/04/17 15:35) Hives ketorolac tromethamine [From Toradol] Allergy (Severe, Verified 02/04/17 15:35) Hives latex Allergy (Severe, Verified 02/04/17 15:35) Hives promethazine HCl [From Phenergan] Allergy (Severe, Verified 02/04/17 15:35) Other Redness at injection site and racing heart. Home Medications: HOME MEDICATIONS Albuterol Sulfate [Albuterol Sulfate 0.63 MG/3ML] 0.63 mg IH PRN 08/03/16 [Last Taken Unknown] Fluticasone Propionate [Flovent Hfa] 10.6 gm IH PRN 08/03/16 [Last Taken Unknown ] Etonogestrel [Nexplanon] 68 mg SQ 11/03/16 [Last Taken Unknown] - History of Present Illness Narrative: 26-year-old female presents to the emergency room for headaches that she's had for 2 days. Patient states that she did take some ibuprofen and Tylenol last night and it did not relieve her headache. Patient states she's had nausea and vomiting today but has been able to keep down a [employer] frappie. Patient has a history of tension headaches and migraines. Date (Duration): 02/04/17 Timing of Headache: gradual Context Headache: Present: new onset. Absent: CO exposure, tick bite, insect bite, sick contact, meningitis exposure, recent head injury < 24 hrs ago, recent head injury > 24 hrs, recent travel-outside [place] Quality: Present: achy Severity Maximum: Present: mild Severity-Currently: Present: mild Headache frequency: Present: chronic headaches, similar to previous headache Modifying Factors - (Worsens): Reports: exposure to light Associated Symptoms: Reports: nausea, vomiting. Denies: sweating, nasal congestion, nasal drainage, facial pain, fatigue, weakness, numbness/tingling, vision changes, confusion, light-headedness, dizziness, loss of consciousness, seizures Exacerbated by:: Reports: light Prior Treament: Reports: similar symptoms before Review of Systems - Review of Systems Constitutional: Present: no symptoms reported EYE: Present: no symptoms reported ENT: Present: no symptoms reported Respiratory: Present: no symptoms reported Cardiology: Present: no symptoms reported Gastrointestinal/Abdominal: Present: no symptoms reported Genitourinary: Present: no symptoms reported Musculoskeletal: Present: no symptoms reported Skin: Present: no symptoms reported Neurological: Present: See HPI, headache Endocrine: Present: no symptoms reported Hematologic/Lymphatic: Present: no symptoms reported Psych: Present: no symptoms reported All Other Systems: All systems neg except as marked - Patient's Past Medical History Patient History - Medical: Arthritis, Chronic Pain, Fibromyalgia, GERD, Headache , Kidney stone, Migraines, Obesity, UTI'S Patient History - Cardiac/Respiratory: Asthma, Sleep Apnea Patient History - Cancer: Cervical Patient History - Surgical Procedures: Other Patient History - Other: None LMP (Calendar): 08/03/15 - Family History Mother Family History - Medical: Diabetes Type 2 Family History - Cardiac/Respiratory: Coronary Heart Disease, Myocardial Infarction Father Family History - Medical: Diabetes Type 2 Family History - Cardiac/Respiratory: Coronary Heart Disease - Social History Living Situations: home Abuse History: No History of abuse Psych History: No pertinent hx Smoking Status: Current every day smoker Have you smoked in the past 12 months: Yes Alcohol Use: none Drug Use: none - Immunizations Immunizations Up to Date: Yes Hx Pneumococcal Vaccination: No History of Influenza Vaccine: No Physical Exam - Physical Exam General Appearance: Present: wd/wn, alert, severe distress Head Exam: Present: normal inspection, no evidence of injury Eye Exam: Normal inspection: bilateral, PERRL: bilateral, EOMI: bilateral Ears, Nose, Throat: Present: normal ENT inspection, normal pharynx Neck: Present: normal inspection, nontender Respiratory: Present: no respiratory distress, normal breath sounds, no accessory muscle use, chest nontender, lungs clear Cardiovascular/Chest: Present: regular rate, rhythm, no murmur, normal peripheral pulses Gastrointestinal/Abdominal: Present: normal bowel sounds, nontender, nondistended, soft, no organomegaly Extremity Exam: Present: normal inspection, non-tender, normal range of motion, no edema Neurological Exam: Present: alert, oriented, normal mood/affect, no motor/ sensory deficits, freight agent II-XII nml as tested, normal cerebellar test Skin Exam: Present: normal color, warm/dry Lymphatic Exam: Present: no adenopathy ED Progress - Vital Signs Patient's Vital Signs:: I have reviewed the patient's vital signs. Vital Signs: Vital Signs 02/04/17 15:33 Temperature 36.8 C Pulse Rate 91 Respiratory 14 Rate Blood Pressure 133/60 O2 Sat by Pulse 98 Oximetry - Progress/Reassessment Chief Complaint: Headache Progress:: Improved Progress Note-Subjective: 02/04/17 16:11 patient able to rest in room. Plan - Plan Plan: Patient has been advised to follow-up with her primary care provider to see why she keeps having these headaches. Patient also suggested he may receive a headache clinic. Departure Clinical Impression: Headache Qualifiers: Headache type: tension-type Headache chronicity pattern: episodic headache Intractability: not intractable Qualified Code(s): G44.219 - Episodic tension- type headache, not intractable - Departure Disposition: Home Follow Up Needed Condition: Stable Instructions: Tension Headache, [id number] Additional Instructions: I advised patient to go home and rest. Follow-up with primary care provider in the next 2-3 days if needed. She take [id number] pain medications as needed for headache. Return to the emergency room if symptoms return or persist. Referrals: Robert Khan MD [Primary Care Provider] -
== END 2017-02-04 16:13 | disposition home or self-care (01) ==
LOC: ER 15:29
DX: G44.219 Episodic tension-type headache, not intractable (principal); Z85.41 Personal history of malignant neoplasm of cervix uteri; F17.200 Nicotine dependence, unspecified, uncomplicated

== ENCOUNTER 2017-03-01 18:30 | Emergency (ER) | payer OTHER ==
[2017-03-01] MEDS ORDERED: NALBUPHINE HCL 20 MG/ML AMPUL IM ONE (19:09)
[2017-03-01] MEDS ORDERED: PROCHLORPERAZINE EDISYLATE 5 MG/ML VIAL IM ONE (19:10)
--- NOTE | 2017-03-01 19:11 | ERNOTE ---
Abdominal HPI - Narrative Date of Service: 03/01/17 - General Chief Complaint: Abdominal Pain Time Seen by Provider: 03/01/17 19:01 Source: patient, RN notes reviewed Exam Limitations: no limitations - Immun/Allergies/Home Medications Immunizatons: IMMUNIZATION HX Immunizations Up to Date Yes History of Influenza Vaccine No Hx Pneumococcal Vaccination No Allergies/Adverse Reactions: Allergies adhesive Allergy (Severe, Verified 03/12/17 19:21) Hives ketorolac tromethamine [From Toradol] Allergy (Severe, Verified 03/12/17 19:21) Hives latex Allergy (Severe, Verified 03/12/17 19:21) Hives promethazine HCl [From Phenergan] Allergy (Severe, Verified 03/12/17 19:21) Other Redness at injection site and racing heart. Home Medications: HOME MEDICATIONS Albuterol Sulfate [Albuterol Sulfate 0.63 MG/3ML] 0.63 mg IH PRN 08/03/16 [Last Taken Unknown] Fluticasone Propionate [Flovent Hfa] 10.6 gm IH PRN 08/03/16 [Last Taken Unknown ] Etonogestrel [Nexplanon] 68 mg SQ DAILY 11/03/16 [Last Taken Unknown] - History of Present Illness Narrative: 26 y/o female ambulatory to the ED for left upper quadrant pain that gets worse when she eats. This began 2 or 3 days ago. Her PCP has been evaluating her for RuQ pain. She had an ultrasound approximately a week ago. She also had lab work done that showed a mild elevation in her WBC. She is scheduled to see her PCP for f/u less than 12 hours from now. Timing: constant Quality: moderate, aching Prior Abdominal Problems: Present: similar symptoms Prior Treatment: Present: recently seen, treated by physician Review of Systems - Review of Systems Constitutional: Absent: fever, chills EYE: Present: no symptoms reported ENT: Absent: nose congestion, sore throat Respiratory: Absent: shortness of breath, cough Cardiology: Absent: chest pain, palpitations Gastrointestinal/Abdominal: Present: nausea, abdominal pain, eating less, drinking less. Absent: vomiting, diarrhea, constipation Genitourinary: Absent: dysuria, hematuria Musculoskeletal: Absent: back pain, muscle pain Skin: Absent: rash, lesions Neurological: Absent: headache, dizziness/light-headedness Endocrine: Present: no symptoms reported Hematologic/Lymphatic: Present: no symptoms reported Psych: Present: no symptoms reported - Patient's Past Medical History Patient History - Medical: Arthritis, Chronic Pain, Fibromyalgia, GERD, Headache , Kidney stone, Migraines, Obesity, UTI'S Patient History - Cardiac/Respiratory: Asthma, Sleep Apnea Patient History - Cancer: No Hx of Cancer Patient History - Surgical Procedures: Other Patient History - Other: None LMP (females 10-50): Has Nexplanon LMP (Calendar): 08/03/15 - Family History Mother Family History - Medical: Diabetes Type 2 Family History - Cardiac/Respiratory: Coronary Heart Disease, Myocardial Infarction Father Family History - Medical: Diabetes Type 2 Family History - Cardiac/Respiratory: Coronary Heart Disease - Social History Living Situations: home Abuse History: No History of abuse Psych History: No pertinent hx Smoking Status: Current every day smoker Have you smoked in the past 12 months: Yes Do you dip or chew tobacco: No Alcohol Use: none Drug Use: none - Immunizations Immunizations Up to Date: Yes Hx Pneumococcal Vaccination: No History of Influenza Vaccine: No Physical Exam - Physical Exam General Appearance: Present: alert, no apparent distress, obese Head Exam: Present: normal inspection Neck: Present: normal inspection, nontender, supple Respiratory: Present: no respiratory distress, normal breath sounds, no accessory muscle use, lungs clear Cardiovascular/Chest: Present: regular rate, rhythm, no murmur, normal peripheral pulses Gastrointestinal/Abdominal: Present: normal bowel sounds, soft, tenderness - LUQ , moderate, distended - Obese Back Exam: Present: normal inspection, no CVA tenderness Extremity Exam: Present: normal inspection, normal range of motion Neurological Exam: Present: alert, oriented, normal mood/affect, no motor/ sensory deficits Skin Exam: Present: normal color, warm/dry ED Progress - Results and Orders Patient's Lab Results:: I have reviewed the patient's lab results. - Vital Signs Patient's Vital Signs:: I have reviewed the patient's vital signs. Vital Signs: Vital Signs 03/01/17 03/01/17 18:40 18:55 Temperature 36.5 C Pulse Rate 100 96 Respiratory 16 Rate Blood Pressure 135/69 106/63 O2 Sat by Pulse 97 98 Oximetry - X-Ray X-Ray #1 X-Ray: abdomen Interpretation: Reviewed by me X-ray Comments: TECHNIQUE: AP upright and supine views of the abdomen were obtained, total of 4 images. COMPARISONS: 12/28/2015, stone protocol CT from 12/28/2015 FINDINGS: Abdomen Flat W/ Upright *: No subdiaphragmatic free air. No abnormal dilation of large or small bowel. Patient has scattered air-fluid levels within nondilated loops of colon throughout the abdomen. Stable appearance of 8 mm ovoid calcification projecting over the right upper quadrant. This appear to be within the liver or within the alyssa hepatis, and given interval stability most likely of low clinical significance. Osseous structures are intact. IMPRESSION: 1. Abnormal bowel gas pattern suggestive of colitis. 2. Additional comments are as above. Electronically signed by Audi Nugent M.D.. - Progress/Reassessment Chief Complaint: Abdominal Pain Progress:: Improved Plan - Plan Plan: Pain resolved with nubain and compazine. WBC slightly elevated at 11.6, but was 11.5 when last checked less than a month ago during another visit for abdominal pain. Discussed CT scan for further evaluation with the patient, however she has f/u with her PCP less than 12 hours from now. Given her lab/xray finding and the location of her pain I suspect a CT would be of low yield. Patient is agreeable to returning later tonight if her pain returns/worsens. Departure Clinical Impression: Abdominal pain - Departure Disposition: Home Follow Up Needed Condition: Stable Instructions: Abdominal Pain, Adult, [id number] Additional Instructions: Return to ER if symptoms worsen tonight, otherwise see Dr. Dillard as scheduled tomorrow Referrals: Robert Khan MD [Primary Care Provider] - 03/02/17 8:15 am
[2017-03-01] MEDS ORDERED: NALBUPHINE HCL 20 MG/ML AMPUL ONE (19:16)
[2017-03-01] MEDS ORDERED: PROCHLORPERAZINE EDISYLATE 5 MG/ML VIAL ONE (19:16)
[2017-03-01 19:27] LABS: Hematocrit 40.6 % (37.0-47.0); Hemoglobin 13.8 gm/dL (12.5-16.0); Mean Cell Volume 87.9 fl (78-100); Mean Corpuscular Hemoglobin 29.9 pg (27-31); Mean Platelet Volume 10.1 fl (6.0-9.5); Neutrophil # 8.4 K/mm3 (1.3-6.0); Neutrophil % 72.4 % (42-75.0); Platelet Count 304 K/mm3 (150-450); Red Blood Count 4.62 M/mm3 (4.2-5.4); Red Cell Distribution Width 12.5 % (11.5-14.0); White Blood Count 11.6 K/mm3 (4.0-10.5)
[2017-03-01 19:37] LABS: Albumin * 3.3 gm/dl (3.4-5.0); Anion Gap 15.3 mmol/L (6.8-13.8); BUN/Creatinine Ratio 9.7 (9.0-21.6); Bilirubin, Total 0.3 mg/dL (0.0-1.1); Ca. Corrected For Albumin 8.9 mg/dL (8.4-10.2); Calcium * 8.7 mg/dL (7.9-10.9); Carbon Dioxide 25.4 mmol/L (24-32.6); Potassium 3.7 mmol/L (3.4-4.6); Total Protein 7.3 gm/dL (6.2-8.2)
[2017-03-01 21:45] VITALS: BP 114/68
== END 2017-03-01 20:49 | disposition home or self-care (01) ==
LOC: ER 18:30
DX: R10.12 Left upper quadrant pain (principal); Z87.440 Personal history of urinary (tract) infections; Z87.442 Personal history of urinary calculi; F17.200 Nicotine dependence, unspecified, uncomplicated

== ENCOUNTER 2017-03-12 19:10 | Emergency (ER) | payer OTHER ==
[2017-03-12 19:33] LABS: Urine Bilirubin Negative (NEGATIVE); Urine Blood Negative /ul (NEGATIVE); Urine Ketone Negative (NEGATIVE); Urine Nitrite Negative (NEGATIVE); Urine Protein Negative (NEGATIVE); Urine Specific Gravity 1.025 SP.GR. (1.005-1.010); Urine Urobilinogen Normal (NORMAL)
[2017-03-12 19:49] LABS: Urine Appearance Clear; Urine Color Yellow; Urine RBC None Seen /hpf (0-5); Urine WBC None Seen /hpf (0-5)
[2017-03-12 19:50] LABS: Urine Bacteria 1+
--- NOTE | 2017-03-12 20:09 | ERNOTE ---
Medical Problem HPI - General Chief Complaint: General Assessment Time Seen by Provider: 03/12/17 19:58 Source: patient Exam Limitations: no limitations - Immun/Allergies/Home Medications Immunizations: IMMUNIZATION HX Immunizations Up to Date Yes History of Influenza Vaccine No Hx Pneumococcal Vaccination No Allergies/Adverse Reactions: Allergies adhesive Allergy (Severe, Verified 03/12/17 19:21) Hives ketorolac tromethamine [From Toradol] Allergy (Severe, Verified 03/12/17 19:21) Hives latex Allergy (Severe, Verified 03/12/17 19:21) Hives promethazine HCl [From Phenergan] Allergy (Severe, Verified 03/12/17 19:21) Other Redness at injection site and racing heart. Home Medications: HOME MEDICATIONS Albuterol Sulfate [Albuterol Sulfate 0.63 MG/3ML] 0.63 mg IH PRN 08/03/16 [Last Taken Unknown] Fluticasone Propionate [Flovent Hfa] 10.6 gm IH PRN 08/03/16 [Last Taken Unknown ] Etonogestrel [Nexplanon] 68 mg SQ DAILY 11/03/16 [Last Taken Unknown] - History of Present History Narrative: Pt states she has had "kidney pain" for 3-4 days with mild dysuria and frequency. She then began to have cough, followed by nausea and vomiting for the past 2 days. She believes she has been exposed to a number of illnesses including mono. Timing: getting worse Severity: moderate Review of Systems - Review of Systems Constitutional: Present: fatigue. Absent: fever EYE: Absent: vision changes ENT: Present: nose congestion, sore throat Respiratory: Present: cough. Absent: shortness of breath Cardiology: Absent: chest pain Gastrointestinal/Abdominal: Present: nausea, vomiting, diarrhea Genitourinary: Present: frequency, dysuria Musculoskeletal: Present: muscle pain Skin: Absent: rash Neurological: Present: no symptoms reported Endocrine: Present: no symptoms reported Hematologic/Lymphatic: Present: no symptoms reported Psych: Present: no symptoms reported - Patient's Past Medical History Patient History - Medical: Arthritis, Chronic Pain, Fibromyalgia, GERD, Headache , Kidney stone, Migraines, Obesity, UTI'S Patient History - Cardiac/Respiratory: Asthma, Sleep Apnea Patient History - Cancer: No Hx of Cancer Patient History - Surgical Procedures: Other Patient History - Other: None LMP (females 10-50): last week LMP (Calendar): 08/03/15 - Family History Mother Family History - Medical: Diabetes Type 2 Family History - Cardiac/Respiratory: Coronary Heart Disease, Myocardial Infarction Father Family History - Medical: Diabetes Type 2 Family History - Cardiac/Respiratory: Coronary Heart Disease - Social History Living Situations: home Abuse History: No History of abuse Psych History: No pertinent hx Smoking Status: Current every day smoker Have you smoked in the past 12 months: Yes Do you dip or chew tobacco: No Alcohol Use: none Drug Use: none - Immunizations Immunizations Up to Date: Yes Hx Pneumococcal Vaccination: No History of Influenza Vaccine: No Physical Exam - Physical Exam General Appearance: Present: wd/wn, alert, no apparent distress Head Exam: Present: normal inspection, no evidence of injury Eye Exam: Normal inspection: bilateral, PERRL: bilateral, EOMI: bilateral Ears, Nose, Throat: Present: nasal congestion - mild without erythema Neck: Present: normal inspection, nontender, supple Respiratory: Present: no respiratory distress, normal breath sounds, lungs clear Cardiovascular/Chest: Present: regular rate, rhythm, no murmur, normal peripheral pulses Gastrointestinal/Abdominal: Present: normal bowel sounds, nontender, nondistended Extremity Exam: Present: normal inspection, non-tender, normal range of motion, no edema Neurological Exam: Present: alert, oriented, normal mood/affect, no motor/ sensory deficits Skin Exam: Present: normal color, warm/dry Lymphatic Exam: Present: no adenopathy ED Progress - Results and Orders Patient's Lab Results:: I have reviewed the patient's lab results. Results and Orders: Laboratory Tests 03/12/17 03/12/17 03/12/17 19:25 19:27 20:15 WBC 10.1 Hgb 13.1 Hct 38.8 Plt Count 293 Sodium Potassium Chloride BUN Creatinine Random Glucose Calcium Total Bilirubin AST ALT Alkaline Phosphatase Total Protein Albumin Amylase Lipase Urine Color Yellow Urine Appearance Clear Urine pH 6.0 Ur Specific [place] 1.025 Urine Protein Negative Urine Glucose (UA) Negative Urine Ketones Negative Urine Blood Negative Urine Nitrate Negative Urine Bilirubin Negative Urine Urobilinogen Normal Ur Leukocyte Esterase Negative Urine RBC None seen Urine WBC None seen Ur Epithelial Cells 5-10 H Urine Bacteria 1+ H Urine Culture Comments No culture indicated Urine HCG, Qual Negative 03/12/17 20:15 WBC Hgb Hct Plt Count Sodium 143 H Potassium 3.7 Chloride 108 H BUN 14 D Creatinine 0.93 Random Glucose 157 H Calcium 8.7 Total Bilirubin 0.3 AST 10 ALT 26 Alkaline Phosphatase 69 Total Protein 7.2 Albumin 3.4 Amylase 23 L Lipase 126 Urine Color Urine Appearance Urine pH Ur Specific [place] Urine Protein Urine Glucose (UA) Urine Ketones Urine Blood Urine Nitrate Urine Bilirubin Urine Urobilinogen Ur Leukocyte Esterase Urine RBC Urine WBC Ur Epithelial Cells Urine Bacteria Urine Culture Comments Urine HCG, Qual - Vital Signs Patient's Vital Signs:: I have reviewed the patient's vital signs. Vital Signs: Vital Signs 03/12/17 19:22 Temperature 36 C L Pulse Rate 100 Respiratory 12 Rate Blood Pressure 113/70 O2 Sat by Pulse 100 Oximetry - X-Ray X-Ray #1 X-Ray: abdomen Interpretation: Interp. by me X-ray Comments: No a/f levels, mild stool retention, no evidence of obstruction. - Progress/Reassessment Chief Complaint: General Assessment Departure - Departure Clinical Impression: Gastroenteritis Disposition: Home self-care Condition: Good Instructions: Viral Gastroenteritis, Adult, [id number] Additional Instructions: Clear liquids as needed if nauseous and BRAT diet (Bananas, Rice, Applesauce, [place]) to help with diarrhea. See your regular doctor if not improving in 7-10 days. Referrals: Robert Khan MD [Primary Care Provider] -
[2017-03-12 20:27] LABS: Hematocrit 38.8 % (37.0-47.0); Hemoglobin 13.1 gm/dL (12.5-16.0); Mean Cell Volume 86.8 fl (78-100); Mean Corpuscular Hemoglobin 29.3 pg (27-31); Mean Corpuscular Hgb Conc 33.8 g/dl (32-36); Mean Platelet Volume 9.9 fl (6.0-9.5); Neutrophil % 59.1 % (42-75.0); Platelet Count 293 K/mm3 (150-450); Red Blood Count 4.47 M/mm3 (4.2-5.4); Red Cell Distribution Width 12.4 % (11.5-14.0); White Blood Count 10.1 K/mm3 (4.0-10.5)
[2017-03-12 20:40] LABS: Albumin * 3.4 gm/dl (3.4-5.0); Anion Gap 13.3 mmol/L (6.8-13.8); BUN/Creatinine Ratio 15.1 (9.0-21.6); Bilirubin, Total 0.3 mg/dL (0.0-1.1); Ca. Corrected For Albumin 8.9 mg/dL (8.4-10.2); Calcium * 8.7 mg/dL (7.9-10.9); Carbon Dioxide 25.4 mmol/L (24-32.6); Potassium 3.7 mmol/L (3.4-4.6); Total Protein 7.2 gm/dL (6.2-8.2)
[2017-03-12 22:08] VITALS: BP 98/66
== END 2017-03-12 22:06 | disposition home or self-care (01) ==
LOC: ER 19:10
DX: K52.9 Noninfective gastroenteritis and colitis, unspecified (principal); Z87.440 Personal history of urinary (tract) infections; J45.909 Unspecified asthma, uncomplicated; F17.200 Nicotine dependence, unspecified, uncomplicated

== ENCOUNTER 2017-03-31 21:47 | Emergency (ER) | payer OTHER ==
[2017-03-31 21:56] VITALS: BP 126/73
--- NOTE | 2017-03-31 22:08 | ERNOTE ---
Headache ER HPI - General Presenting Symptoms: "migraine" Time Seen by Provider: 03/31/17 22:00 Source: patient, RN notes reviewed, old records Exam Limitations: no limitations - Immun/Allergies/Home Medications Immunizations: IMMUNIZATION HX Immunizations Up to Date Yes History of Influenza Vaccine No Hx Pneumococcal Vaccination No Allergies/Adverse Reactions: Allergies adhesive Allergy (Severe, Verified 03/12/17 19:21) Hives ketorolac tromethamine [From Toradol] Allergy (Severe, Verified 03/12/17 19:21) Hives latex Allergy (Severe, Verified 03/12/17 19:21) Hives promethazine HCl [From Phenergan] Allergy (Severe, Verified 03/12/17 19:21) Other Redness at injection site and racing heart. Home Medications: HOME MEDICATIONS Albuterol Sulfate [Albuterol Sulfate 0.63 MG/3ML] 0.63 mg IH PRN 08/03/16 [Last Taken Unknown] Fluticasone Propionate [Flovent Hfa] 10.6 gm IH PRN 08/03/16 [Last Taken Unknown ] Etonogestrel [Nexplanon] 68 mg SQ DAILY 11/03/16 [Last Taken Unknown] - History of Present Illness Narrative: Patient complains of a headache that started this afternoon. She thought it might be her blood sugar going low, so she ate some food, but did not check her blood sugar to see if that was the issue. She did not try Tylenol or anything else, instead showing up here asking to be treated. Timing of Headache: gradual Context Headache: Absent: meningitis exposure, recent head injury < 24 hrs ago, recent head injury > 24 hrs Quality: Present: achy, throbbing Severity Maximum: Present: moderate Severity-Currently: Present: moderate Headache frequency: Present: frequent headaches, chronic headaches, similar to previous headache Modifying Factors - (Improves): Reports: rest Modifying Factors - (Worsens): Reports: movement Review of Systems - Review of Systems Constitutional: Absent: recent illness, fever, chills EYE: Present: no symptoms reported ENT: Absent: ear pain, sore throat Respiratory: Absent: shortness of breath, cough Cardiology: Absent: chest pain, palpitations Gastrointestinal/Abdominal: Present: abdominal pain. Absent: nausea, vomiting, diarrhea Genitourinary: Present: no symptoms reported Musculoskeletal: Present: back pain, muscle pain, muscle stiffness Neurological: Present: headache Endocrine: Present: no symptoms reported Hematologic/Lymphatic: Present: no symptoms reported Psych: Present: no symptoms reported - Patient's Past Medical History Patient History - Medical: Arthritis, Chronic Pain, Fibromyalgia, GERD, Headache , Kidney stone, Migraines, Obesity, UTI'S Patient History - Cardiac/Respiratory: Asthma, Sleep Apnea Patient History - Cancer: No Hx of Cancer Patient History - Surgical Procedures: Other Patient History - Other: None LMP (females 10-50): nexplanon - Family History Mother Family History - Medical: Diabetes Type 2 Family History - Cardiac/Respiratory: Coronary Heart Disease, Myocardial Infarction Father Family History - Medical: Diabetes Type 2 Family History - Cardiac/Respiratory: Coronary Heart Disease - Social History Living Situations: parents Abuse History: No History of abuse Psych History: No pertinent hx Smoking Status: Current every day smoker Have you smoked in the past 12 months: Yes Do you dip or chew tobacco: No Patient requests Smoking Cessation Consult: No Initiate information on Smoking Cessation: No Alcohol Use: none Drug Use: none - Immunizations Immunizations Up to Date: Yes Hx Pneumococcal Vaccination: No History of Influenza Vaccine: No Physical Exam - Physical Exam General Appearance: Present: wd/wn, alert, mild distress, obese Head Exam: Present: normal inspection, no evidence of injury Eye Exam: Normal inspection: bilateral, PERRL: bilateral, EOMI: bilateral Ears, Nose, Throat: Present: normal ENT inspection Neck: Present: normal inspection, nontender Respiratory: Present: no respiratory distress, normal breath sounds, no accessory muscle use, chest nontender, lungs clear Cardiovascular/Chest: Present: regular rate, rhythm, no murmur Gastrointestinal/Abdominal: Present: normal bowel sounds, nontender, nondistended, soft Back Exam: Present: normal inspection, normal range of motion Extremity Exam: Present: normal inspection, non-tender, normal range of motion Neurological Exam: Present: alert, oriented, normal mood/affect Skin Exam: Present: normal color, warm/dry ED Progress - Vital Signs Patient's Vital Signs:: I have reviewed the patient's vital signs. Vital Signs: Vital Signs 03/31/17 21:51 Temperature 36.7 C Pulse Rate 92 Respiratory 16 Rate Blood Pressure 126/73 O2 Sat by Pulse 97 Oximetry - Progress/Reassessment Chief Complaint: Headache Plan - Plan Plan: Benadryl 50 mg IM Compazine 10 mg IM 22:44 - patient states she is starting to feel better, will discharge home. Departure Clinical Impression: Migraine headache Qualifiers: Migraine type: without aura Status migrainosus presence: without status migrainosus Intractability: not intractable Qualified Code(s): G43.009 - Migraine without aura, not intractable, without status migrainosus - Departure Disposition: Home self-care Condition: Good Instructions: Recurrent Migraine Headache, [id number] Referrals: Robert Khan MD [Primary Care Provider] - (3-5 days)
[2017-03-31] MEDS ORDERED: PROCHLORPERAZINE EDISYLATE 5 MG/ML VIAL IM ONE (22:22)
[2017-03-31] MEDS ORDERED: diphenhydrAMINE HCL 50 MG/ML VIAL IM ONE (22:22)
[2017-03-31] MEDS ORDERED: diphenhydrAMINE HCL 50 MG/ML VIAL ONE (22:26)
[2017-03-31] MEDS ORDERED: PROCHLORPERAZINE EDISYLATE 5 MG/ML VIAL ONE (22:27)
== END 2017-03-31 22:48 | disposition home or self-care (01) ==
LOC: ER 21:47
DX: G43.009 Migraine without aura, not intractable, without status migrainosus (principal); G89.29 Other chronic pain; M79.7 Fibromyalgia; M19.90 Unspecified osteoarthritis, unspecified site; K21.9 Gastro-esophageal reflux disease without esophagitis; F17.200 Nicotine dependence, unspecified, uncomplicated

== ENCOUNTER 2017-05-02 09:35 | Emergency (ER) | payer OTHER ==
--- NOTE | 2017-05-02 09:55 | ERNOTE ---
Time Seen by Provider: 05/02/17 09:48 Stated Complaint: PNEUMONIA SWOLLEN OF THE WHOLE BODY Presenting Symptoms:: cough, fever Exam Limitations: no limitations Immunizations: IMMUNIZATION HX Immunizations Up to Date Yes History of Influenza Vaccine No Hx Pneumococcal Vaccination No Allergies/Adverse Reactions: Allergies adhesive Allergy (Severe, Verified 05/02/17 09:49) Hives ketorolac tromethamine [From Toradol] Allergy (Severe, Verified 05/02/17 09:49) Hives latex Allergy (Severe, Verified 05/02/17 09:49) Hives promethazine HCl [From Phenergan] Allergy (Severe, Verified 05/02/17 09:49) Other Redness at injection site and racing heart. Home Medications: HOME MEDICATIONS Albuterol Sulfate [Albuterol Sulfate 0.63 MG/3ML] 0.63 mg IH PRN 08/03/16 [Last Taken Unknown] Etonogestrel [Nexplanon] 68 mg SQ DAILY 11/03/16 [Last Taken Unknown] Benzonatate [Tessalon Perle] 100 mg PO TID #20 capsule 05/02/17 [Last Taken Unknown] Doxycycline Monohydrate 100 mg PO BID #20 tablet 05/02/17 [Last Taken Unknown] - History of Present Ilness Narrative: Patient presents with cough and congestion, with intermittent fevers and body aches. Onset was several days ago and does not appear to be getting better. Timing: intermittent Severity: moderate Frequency/Possible Cause: Reports: no prior episodes Modifying Factors - Improves: Reports: nothing Modifying Factors - Worsens: Reports: nothing Associated Symptoms: Reports: cough Review of Systems - Review of Systems Constitutional: Present: See HPI, other - body aches EYE: Present: no symptoms reported ENT: Present: nose congestion Respiratory: Present: cough Cardiology: Present: no symptoms reported Gastrointestinal/Abdominal: Present: no symptoms reported Genitourinary: Present: no symptoms reported Musculoskeletal: Present: no symptoms reported Skin: Present: no symptoms reported Neurological: Present: no symptoms reported Endocrine: Present: no symptoms reported Hematologic/Lymphatic: Present: no symptoms reported Psych: Present: no symptoms reported - Patient's Past Medical History Patient History - Medical: Arthritis, Chronic Pain, Fibromyalgia, GERD, Headache , Kidney stone, Migraines, Obesity, UTI'S Patient History - Cardiac/Respiratory: Asthma, Pneumonia, Sleep Apnea Patient History - Cancer: No Hx of Cancer Patient History - Surgical Procedures: Other Patient History - Other: None - Family History Mother Family History - Medical: Diabetes Type 2 Family History - Cardiac/Respiratory: Coronary Heart Disease, Myocardial Infarction Father Family History - Medical: Diabetes Type 2 Family History - Cardiac/Respiratory: Coronary Heart Disease - Social History Abuse History: No History of abuse Psych History: No pertinent hx - Immunizations Immunizations Up to Date: Yes Hx Pneumococcal Vaccination: No History of Influenza Vaccine: No Physical Exam - Physical Exam General Appearance: Present: wd/wn, alert, moderate distress Eye Exam: Normal inspection: bilateral, PERRL: bilateral Ears, Nose, Throat: Present: normal ENT inspection, H, normal pharynx Neck: Present: normal inspection, nontender Respiratory: Present: no respiratory distress, no accessory muscle use, chest nontender, lungs clear, other - fine course breath sounds Cardiovascular/Chest: Present: regular rate, rhythm, no murmur, normal peripheral pulses Gastrointestinal/Abdominal: Present: normal bowel sounds, nontender, nondistended, soft, no organomegaly Rectal Exam: Present: deferred Back Exam: Present: normal inspection, normal range of motion Extremity Exam: Present: normal inspection, non-tender, no edema, normal range of motion Neurological Exam: Present: alert, oriented, normal mood/affect Skin Exam: Present: normal color, warm/dry Lymphatic Exam: Present: no adenopathy ED Progress - Results and Orders Patient's Lab Results:: I have reviewed the patient's lab results. - Vital Signs Patient's Vital Signs:: I have reviewed the patient's vital signs. Vital Signs: Vital Signs 05/02/17 09:45 Temperature 36.6 C Pulse Rate 75 Respiratory 16 Rate Blood Pressure 119/56 O2 Sat by Pulse 98 Oximetry - X-Ray X-Ray #1 X-Ray: chest Interpretation: Reviewed by me - Progress/Reassessment Chief Complaint: Upper Respiratory Symptoms Plan - Plan Plan: Patient appears to have bronchitis we will start her on doxycycline as well as Tessalon Perles and she will follow-up with her family physician as needed Departure Clinical Impression: Bronchitis - Departure Disposition: Home self-care Condition: Good Instructions: Acute Bronchitis, [id number] Prescriptions: Benzonatate [Tessalon Perle] 100 mg PO TID #20 capsule Doxycycline Monohydrate 100 mg PO BID #20 tablet
[2017-05-02 10:08] LABS: Hematocrit 40.8 % (37.0-47.0); Hemoglobin 13.6 gm/dL (12.5-16.0); Mean Cell Volume 87.9 fl (78-100); Mean Corpuscular Hemoglobin 29.3 pg (27-31); Mean Corpuscular Hgb Conc 33.3 g/dl (32-36); Mean Platelet Volume 9.8 fl (6.0-9.5); Neutrophil # 6.5 K/mm3 (1.3-6.0); Neutrophil % 69.5 % (42-75.0); Platelet Count 275 K/mm3 (150-450); Red Blood Count 4.64 M/mm3 (4.2-5.4); Red Cell Distribution Width 12.7 % (11.5-14.0); White Blood Count 9.4 K/mm3 (4.0-10.5)
[2017-05-02 10:20] LABS: Albumin * 3.3 gm/dl (3.4-5.0); Anion Gap 12.8 mmol/L (6.8-13.8); BUN/Creatinine Ratio 10.5 (9.0-21.6); Bilirubin, Total 0.7 mg/dL (0.0-1.1); Calcium * 8.8 mg/dL (7.9-10.9); Carbon Dioxide 26.4 mmol/L (24-32.6); Potassium 4.2 mmol/L (3.4-4.6); Total Protein 7.1 gm/dL (6.2-8.2)
[2017-05-02 10:22] LABS: Urine Bilirubin Negative (NEGATIVE); Urine Blood Negative /ul (NEGATIVE); Urine Ketone Negative (NEGATIVE); Urine Nitrite Negative (NEGATIVE); Urine Protein Negative (NEGATIVE); Urine Urobilinogen Normal (NORMAL); Urine pH 6.5 pH (5.0-7.0)
[2017-05-02 10:30] LABS: Urine Appearance Clear; Urine Bacteria 1+; Urine Color Yellow; Urine RBC TRACE /hpf (0-5); Urine WBC TRACE /hpf (0-5)
[2017-05-02 12:36] VITALS: BP 119/60
== END 2017-05-02 12:37 | disposition home or self-care (01) ==
LOC: ER 09:35
DX: J40 Bronchitis, not specified as acute or chronic (principal); Z87.440 Personal history of urinary (tract) infections; Z87.442 Personal history of urinary calculi; J45.909 Unspecified asthma, uncomplicated

== ENCOUNTER 2017-05-07 13:05 | Emergency (ER) | payer OTHER ==
[2017-05-07 13:31] LABS: Hemoglobin 14.2 gm/dL (12.5-16.0); Mean Cell Volume 87.3 fl (78-100); Mean Corpuscular Hemoglobin 29.5 pg (27-31); Mean Corpuscular Hgb Conc 33.8 g/dl (32-36); Mean Platelet Volume 9.9 fl (6.0-9.5); Neutrophil # 7.3 K/mm3 (1.3-6.0); Platelet Count 329 K/mm3 (150-450); Red Blood Count 4.81 M/mm3 (4.2-5.4); Red Cell Distribution Width 12.5 % (11.5-14.0); White Blood Count 10.2 K/mm3 (4.0-10.5)
[2017-05-07 13:47] LABS: ALT 27 U/L (19-67); AST 13 U/L (0-48); Albumin * 3.5 gm/dl (3.4-5.0); Alkaline Phosphatase * 82 U/L (50-170); BUN/Creatinine Ratio 13.3 (9.0-21.6); Bilirubin, Total 0.3 mg/dL (0.0-1.1); Blood Urea Nitrogen 11 mg/dL (3-23); Ca. Corrected For Albumin 8.8 mg/dL (8.4-10.2); Calcium * 8.7 mg/dL (7.9-10.9); Carbon Dioxide 27.7 mmol/L (24-32.6); Chloride 105 mmol/L (97-106); Glucose * 170 mg/dL (70-110); Potassium 3.7 mmol/L (3.4-4.6); Sodium 142 mmol/L (132-142); Total Protein 7.5 gm/dL (6.2-8.2); Troponin I Less than 0.017 ng/ml (0.00-0.10)
--- NOTE | 2017-05-07 14:27 | ERNOTE ---
Dizziness ER Record Date of Service: 05/07/17 Presenting Symptoms: dizziness Time Seen by Provider: 05/07/17 13:27 Source: patient, RN notes reviewed, old records Exam Limitations: no limitations Immunizations: IMMUNIZATION HX Immunizations Up to Date Yes History of Influenza Vaccine No Hx Pneumococcal Vaccination No Allergies/Adverse Reactions: Allergies Allergy/AdvReac Type Severity Reaction Status Date / Time adhesive Allergy Severe Hives Verified 05/07/17 13:12 ketorolac tromethamine Allergy Severe Hives Verified 05/07/17 13:12 [From Toradol] latex Allergy Severe Hives Verified 05/07/17 13:12 promethazine HCl Allergy Severe Other Verified 05/07/17 13:12 [From Phenergan] Home Medications: HOME MEDICATIONS Albuterol Sulfate [Albuterol Sulfate 0.63 MG/3ML] 0.63 mg IH PRN 08/03/16 [Last Taken Unknown] Etonogestrel [Nexplanon] 68 mg SQ DAILY 11/03/16 [Last Taken Unknown] Benzonatate [Tessalon Perle] 100 mg PO TID #20 capsule 05/02/17 [Last Taken Unknown] Doxycycline Monohydrate 100 mg PO BID #20 tablet 05/02/17 [Last Taken Unknown] Ibuprofen [Motrin] 600 mg PO Q6H PRN #40 tab 05/07/17 [Last Taken Unknown] predniSONE [Prednisone] 2 tab PO DAILY #14 tab 05/07/17 [Last Taken Unknown] - History of Present Illness Narrative: Liyah is a 26-year-old female who presents to the emergency Department with complaints of dizziness, intermittent chest pain, and numbness on the left side of her upper body and arm. She was seen here on May 02 for a cough and congestion that have been going on for several days. She was diagnosed with bronchitis at that time and was started on doxycycline and Tessalon Perles. She reports that the dizziness began 3 or 4 days ago. The chest pain also began at that time. It is on the left side of her chest and then she has numbness in the left arm with it. This lasts anywhere from seconds to hours at a time. She is concerned that she is having a stroke. Decreased ability to stand/walk:: Present: walks w/o assistance Usually:: Present: walks w/o assistance Prior Treament: Reports: recently seen, treated by physician, currently on antibiotics Review of Systems - Review of Systems Constitutional: Present: fatigue, malaise. Absent: fever, chills EYE: Absent: eye pain, vision changes ENT: Absent: nose congestion, nasal drainage Respiratory: Present: shortness of breath, cough. Absent: orthopnea, wheezing Cardiology: Present: chest pain. Absent: palpitations, syncope Gastrointestinal/Abdominal: Absent: nausea, vomiting, abdominal pain, eating less, drinking less Genitourinary: Absent: dysuria, hematuria Musculoskeletal: Present: muscle pain. Absent: joint pain, joint swelling Skin: Absent: rash, lesions, lumps Neurological: Present: dizziness/light-headedness, numbness, tingling. Absent: headache, weakness Endocrine: Present: no symptoms reported Hematologic/Lymphatic: Absent: easy bruising, easy bleeding Psych: Present: emotional problems - Patient's Past Medical History Patient History - Medical: Arthritis, Chronic Pain, Fibromyalgia, GERD, Headache , Kidney stone, Migraines, Obesity, UTI'S Patient History - Cardiac/Respiratory: Asthma, Pneumonia, Sleep Apnea Patient History - Cancer: No Hx of Cancer Patient History - Surgical Procedures: EGD, Other Patient History - Other: None LMP (females 10-50): Nexplanon - Family History Mother Family History - Medical: Diabetes Type 2 Family History - Cardiac/Respiratory: Coronary Heart Disease, Myocardial Infarction Father Family History - Medical: Diabetes Type 2 Family History - Cardiac/Respiratory: Coronary Heart Disease - Social History Living Situations: home Abuse History: No History of abuse Psych History: No pertinent hx Smoking Status: Current every day smoker Have you smoked in the past 12 months: Yes Alcohol Use: none Drug Use: none - Immunizations Immunizations Up to Date: Yes Hx Pneumococcal Vaccination: No History of Influenza Vaccine: No Physical Exam - Physical Exam General Appearance: Present: alert, no apparent distress, obese Head Exam: Present: normal inspection, no evidence of injury Eye Exam: Normal inspection: bilateral, PERRL: bilateral Ears, Nose, Throat: Present: normal ENT inspection, normal pharynx Neck: Present: normal inspection, nontender, supple, full range of motion Respiratory: Present: no respiratory distress, no accessory muscle use, lungs clear, chest tenderness - Left anterior, expiration (prolonged) Cardiovascular/Chest: Present: regular rate, rhythm, no murmur, normal peripheral pulses Extremity Exam: Present: normal inspection, non-tender, normal range of motion, no edema Neurological Exam: Present: alert, oriented, normal mood/affect, no motor/ sensory deficits Skin Exam: Present: normal color, warm/dry ED Progress - Results and Orders Patient's Lab Results:: I have reviewed the patient's lab results. - Vital Signs Patient's Vital Signs:: I have reviewed the patient's vital signs. Vital Signs: Vital Signs 05/07/17 05/07/17 13:08 13:12 Temperature 36.8 C Pulse Rate 93 98 Respiratory 14 Rate Blood Pressure 143/72 O2 Sat by Pulse 99 Oximetry - EKG EKG: NSR EKG read: Reviewed by me - X-Ray X-Ray #1 X-Ray: chest Interpretation: Reviewed by me X-ray Comments: No acute cardiopulmonary process noted - Progress/Reassessment Chief Complaint: Dizziness Progress:: Unchanged Departure Clinical Impression: Chest wall pain - Departure Disposition: Home self-care Condition: Good Instructions: Chest Wall Pain, [id number] Additional Instructions: Continue your antibiotic Follow up with your doctor if symptoms continue Referrals: Robert Khan MD [Primary Care Provider] - Prescriptions: Ibuprofen [Motrin] 600 mg PO Q6H PRN #40 tab PRN Reason: Pain predniSONE [Prednisone] 2 tab PO DAILY #14 tab
[2017-05-07 14:34] VITALS: BP 104/80
== END 2017-05-07 14:37 | disposition home or self-care (01) ==
LOC: ER 13:05
DX: R07.89 Other chest pain (principal); G89.29 Other chronic pain; M79.7 Fibromyalgia; K21.9 Gastro-esophageal reflux disease without esophagitis; F17.200 Nicotine dependence, unspecified, uncomplicated

== ENCOUNTER 2017-05-27 15:49 | Emergency (ER) | payer MEDICAID, OTHER ==
[2017-05-27] MEDS ORDERED: IBUPROFEN 600 MG TABLET PO ONE (16:49)
[2017-05-27] MEDS ORDERED: IBUPROFEN 600 MG TABLET ONE (16:54)
--- NOTE | 2017-05-27 16:54 | ERNOTE ---
Date of Service: 05/27/17 Time Seen by Provider: 05/27/17 16:16 Stated Complaint: CHEST PAIN LT SIDE Presenting Symptoms:: other - Chest pain Source: patient, family, RN notes reviewed Exam Limitations: no limitations Immunizations: IMMUNIZATION HX Immunizations Up to Date Yes History of Influenza Vaccine No Hx Pneumococcal Vaccination No Allergies/Adverse Reactions: Allergies adhesive Allergy (Severe, Verified 05/07/17 13:12) Hives ketorolac tromethamine [From Toradol] Allergy (Severe, Verified 05/07/17 13:12) Hives latex Allergy (Severe, Verified 05/07/17 13:12) Hives promethazine HCl [From Phenergan] Allergy (Severe, Verified 05/07/17 13:12) Other Redness at injection site and racing heart. Home Medications: HOME MEDICATIONS Albuterol Sulfate [Albuterol Sulfate 0.63 MG/3ML] 0.63 mg IH PRN 08/03/16 [Last Taken Unknown] Etonogestrel [Nexplanon] 68 mg SQ DAILY 11/03/16 [Last Taken Unknown] Benzonatate [Tessalon Perle] 100 mg PO TID #20 capsule 05/02/17 [Last Taken Unknown] Doxycycline Monohydrate 100 mg PO BID #20 tablet 05/02/17 [Last Taken Unknown] Ibuprofen [Motrin] 600 mg PO Q6H PRN #40 tab 05/07/17 [Last Taken Unknown] predniSONE [Prednisone] 2 tab PO DAILY #14 tab 05/07/17 [Last Taken Unknown] - History of Present Ilness Narrative: 26 year old female ambulatory to the ED for left upper chest pain that began abruptly while she was driving. The pain is constant but worsens with palpation or bending over. She has no other symptoms. I saw the patient for similar complaints less than a month ago. Her work-up at that time was unremarkable. Date (Duration): 05/27/17 Time (Timing): 15:15 Prior Treatment: Reports: recently seen. Denies: currently on antibiotics Review of Systems - Review of Systems Constitutional: Present: recent illness. Absent: fever, chills, fatigue, malaise EYE: Present: no symptoms reported ENT: Present: no symptoms reported Respiratory: Absent: shortness of breath, cough, wheezing Cardiology: Present: chest pain. Absent: palpitations, syncope, edema Gastrointestinal/Abdominal: Absent: nausea, vomiting, abdominal pain Genitourinary: Present: no symptoms reported Musculoskeletal: Absent: back pain, neck pain, joint pain, joint swelling Skin: Absent: rash, lesions, lumps, change in color Neurological: Absent: headache, dizziness/light-headedness Endocrine: Present: no symptoms reported Hematologic/Lymphatic: Present: no symptoms reported Psych: Present: anxiety. Absent: depressed - Patient's Past Medical History Patient History - Medical: Arthritis, Chronic Pain, Fibromyalgia, GERD, Headache , Kidney stone, Migraines, Obesity, UTI'S Patient History - Cardiac/Respiratory: Asthma, Pneumonia, Sleep Apnea Patient History - Cancer: No Hx of Cancer Patient History - Surgical Procedures: EGD, Other Patient History - Other: None - Family History Mother Family History - Medical: Diabetes Type 2 Family History - Cardiac/Respiratory: Coronary Heart Disease, Myocardial Infarction Father Family History - Medical: Diabetes Type 2 Family History - Cardiac/Respiratory: Coronary Heart Disease - Social History Living Situations: home Abuse History: No History of abuse Psych History: No pertinent hx Smoking Status: Current every day smoker Have you smoked in the past 12 months: Yes Do you dip or chew tobacco: No Patient requests Smoking Cessation Consult: No Initiate information on Smoking Cessation: No Alcohol Use: rarely Drug Use: none - Immunizations Immunizations Up to Date: Yes Hx Pneumococcal Vaccination: No History of Influenza Vaccine: No Physical Exam - Physical Exam General Appearance: Present: wd/wn, alert, no apparent distress, obese Neck: Present: normal inspection, nontender, supple Respiratory: Present: no respiratory distress, normal breath sounds, no accessory muscle use, lungs clear, chest tenderness - Left upper anterior chest Cardiovascular/Chest: Present: regular rate, rhythm, no murmur, normal peripheral pulses Neurological Exam: Present: alert, oriented, normal mood/affect, no motor/ sensory deficits Skin Exam: Present: normal color, warm/dry ED Progress - Vital Signs Patient's Vital Signs:: I have reviewed the patient's vital signs. Vital Signs: Vital Signs 05/27/17 15:58 Pulse Rate 89 Respiratory 16 Rate O2 Sat by Pulse 97 Oximetry - EKG EKG: NSR EKG read: Reviewed by me - Progress/Reassessment Chief Complaint: Upper Respiratory Symptoms Progress:: Unchanged Departure Clinical Impression: Chest wall pain - Departure Disposition: Home self-care Condition: Good Instructions: Chest Wall Pain Referrals: Robert Khan MD [Primary Care Provider] -
[2017-05-27 18:10] VITALS: BP 135/81
== END 2017-05-27 16:55 | disposition home or self-care (01) ==
LOC: ER 15:49
DX: R07.89 Other chest pain (principal); Z87.440 Personal history of urinary (tract) infections; Z87.442 Personal history of urinary calculi; F17.200 Nicotine dependence, unspecified, uncomplicated

== ENCOUNTER 2017-08-06 11:57 | Emergency (ER) | payer SELFPAY ==
[2017-08-06] MEDS ORDERED: ORPHENADRINE CITRATE 30 MG/ML VIAL IM ONE (13:29)
[2017-08-06] MEDS ORDERED: HYDROcodone/ACETAMINOPHEN 1 EACH TABLET PO ONE (13:29)
[2017-08-06] MEDS ORDERED: NAPROXEN SODIUM 550 MG TABLET PO ONE (13:30)
[2017-08-06] MEDS ORDERED: HYDROcodone/ACETAMINOPHEN 1 EACH TABLET ONE (13:36)
[2017-08-06] MEDS ORDERED: ORPHENADRINE CITRATE 30 MG/ML VIAL ONE (13:36)
[2017-08-06] MEDS ORDERED: NAPROXEN SODIUM 550 MG TABLET ONE (13:36)
--- NOTE | 2017-08-06 13:41 | ERNOTE ---
Back Pain ER HPI Presenting Symptoms: injury/pain to back Time Seen by Provider: 08/06/17 13:22 Source: patient Exam Limitations: no limitations Immunizations: IMMUNIZATION HX Immunizations Up to Date Yes History of Influenza Vaccine No Hx Pneumococcal Vaccination No Allergies/Adverse Reactions: Allergies adhesive Allergy (Severe, Verified 07/07/17 16:18) Hives ketorolac tromethamine [From Toradol] Allergy (Severe, Verified 07/07/17 16:18) Hives latex Allergy (Severe, Verified 07/07/17 16:18) Hives promethazine HCl [From Phenergan] Allergy (Severe, Verified 07/07/17 16:18) Other Redness at injection site and racing heart. Influenza Virus Vaccines Allergy (Verified 08/01/17 09:12) Home Medications: HOME MEDICATIONS Albuterol Sulfate [Albuterol Sulfate 0.63 MG/3ML] 0.63 mg IH PRN 08/03/16 [Last Taken Unknown] Etonogestrel [Nexplanon] 68 mg SQ DAILY 11/03/16 [Last Taken Unknown] Albuterol Sulfate [Proair Respiclick] 90 mcg IH QID #1 [id number] 07/06/17 [ Last Taken Unknown] Naproxen [Naprosyn] 500 mg PO BID #60 tablet 08/06/17 [Last Taken Unknown] Narrative: Patient slipped while she was at work 2 days ago and was seen at the [facility] and was examined, x-rays were done and she was given prescriptions. Patient neglected to scrap picker the prescriptions because she was not sure who is going to pay for them. Patient declined to go back to the [facility] and came here for further evaluation. She was told by her work comp that this visit would not be paid for and that she was not to see occupational health here [place] either. She opted instead to be seen here. Patient states that she slipped while she was at work and did not fall but twisted her back and now has moderate to severe low back pain and is having difficulty walking secondary to pain and spasm. Timing: Reports: constant Quality/Severity: Reports: moderate, severe Location of pain: Reports: lower back Activities at Onset: Reports: activity Recent Injury?: Reports: yes Possible Precipitating Factor: Reports: none - slipping and near fall Modifying Factors - (Improves): Reports: supine position Modifying Factors - (Worsens): Reports: upright position Prior Treament: Reports: recently seen, treated by physician, similar symptoms before Review of Systems - Review of Systems Constitutional: Present: See HPI EYE: Present: no symptoms reported ENT: Present: no symptoms reported Respiratory: Present: no symptoms reported Cardiology: Present: no symptoms reported Gastrointestinal/Abdominal: Present: no symptoms reported Genitourinary: Present: no symptoms reported Musculoskeletal: Present: back pain, muscle pain, muscle stiffness Skin: Present: no symptoms reported Neurological: Present: no symptoms reported Endocrine: Present: no symptoms reported Hematologic/Lymphatic: Present: no symptoms reported Psych: Present: no symptoms reported - Patient's Past Medical History Patient History - Medical: Arthritis, Chronic Pain, Fibromyalgia, GERD, Headache , Kidney stone, Migraines, Obesity, UTI'S, Other Patient History - Cardiac/Respiratory: Asthma, Pneumonia, Sleep Apnea, Other Patient History - Cancer: Other Patient History - Surgical Procedures: EGD, Other Patient History - Other: None LMP (females 10-50): 3 weeks - Family History Mother Family History - Medical: Diabetes Type 2 Family History - Cardiac/Respiratory: Coronary Heart Disease, Myocardial Infarction Father Family History - Medical: Diabetes Type 2 Family History - Cardiac/Respiratory: Coronary Heart Disease - Social History Living Situations: home Abuse History: No History of abuse Psych History: No pertinent hx Smoking Status: Current every day smoker Alcohol Use: none Drug Use: none - Immunizations Immunizations Up to Date: Yes Hx Pneumococcal Vaccination: No History of Influenza Vaccine: No Physical Exam - Physical Exam General Appearance: Present: wd/wn, alert, moderate distress, severe distress Head Exam: Present: normal inspection, no evidence of injury Eye Exam: Normal inspection: bilateral, PERRL: bilateral Ears, Nose, Throat: Present: normal ENT inspection, H, normal pharynx Neck: Present: normal inspection, nontender Respiratory: Present: no respiratory distress, normal breath sounds, no accessory muscle use, chest nontender, lungs clear Cardiovascular/Chest: Present: no murmur, normal peripheral pulses, tachycardia Gastrointestinal/Abdominal: Present: normal bowel sounds, nontender, nondistended, soft, no organomegaly Rectal Exam: Present: deferred Pelvic Exam: Present: deferred Back Exam: Present: decreased range of motion, muscle spasm Extremity Exam: Present: normal inspection, non-tender, no edema, normal range of motion Neurological Exam: Present: alert, oriented, normal mood/affect Skin Exam: Present: normal color, warm/dry Lymphatic Exam: Present: no adenopathy ED Progress - Vital Signs Patient's Vital Signs:: I have reviewed the patient's vital signs. Vital Signs: Vital Signs 08/06/17 12:03 Temperature 36.1 C L Pulse Rate 105 H Respiratory 15 Rate Blood Pressure 143/71 O2 Sat by Pulse 98 Oximetry - Progress/Reassessment Chief Complaint: Back Pain Progress Note-Subjective: 08/06/17 13:40 I reviewed the entirety of her ER visit to [facility]. Patient's x-rays were unremarkable. Plan - Plan Plan: Patient feels marginally improved and she was advised to make sure she picked up her prescriptions for Flexeril and the [place] there were written at [facility]. I will add Anaprox DS to the regimen and she tells me that she has appointment with her family physician tomorrow to discuss other treatment options. Patient does not get hives from her Toradol injections, she states she gets a localized irritation at the injection site. Departure Clinical Impression: Muscle spasm Low back pain Qualifiers: Chronicity: acute Back pain laterality: bilateral Sciatica presence: without sciatica Qualified Code(s): M54.5 - Low back pain - Departure Disposition: Home self-care Condition: Good Instructions: Low Back Sprain With Rehab-SportsMed, Back Pain, Adult, Muscle Cramps and Spasms, [id number] Referrals: Robert Khan MD [Primary Care Provider] - Prescriptions: Naproxen [Naprosyn] 500 mg PO BID #60 tablet
[2017-08-06 14:55] VITALS: BP 150/75
== END 2017-08-06 14:35 | disposition home or self-care (01) ==
LOC: ER 11:57
DX: M62.838 Other muscle spasm (principal); M54.5 Low back pain; Z87.440 Personal history of urinary (tract) infections; Z87.442 Personal history of urinary calculi; F17.200 Nicotine dependence, unspecified, uncomplicated